=== PATIENT | male | born 1950 | race Caucasian/White ===

== ENCOUNTER 2017-09-23 22:49 | Inpatient (IN) | payer OTHER, MEDICARE ==
[~2017-09-23] VITALS: Ht 177.8 cm; Wt 90.2 kg
[2017-09-23 22:56] VITALS: BP 214/102; PULSE 61; RESP 18; TEMP 97.6; O2SAT 94
[2017-09-23] MEDS ORDERED: HYDR25TA5 PO (23:21)
[2017-09-23] MEDS ORDERED: ASPI-516 CHEW (23:21)
[2017-09-23] MEDS ORDERED: SIMV20TA PO (23:21)
[2017-09-23] MEDS ORDERED: RAMI10CA PO (23:21)
[2017-09-23] MEDS ORDERED: IPRAAER INH (23:21)
[2017-09-23 23:35] VITALS: BP 195/88; PULSE 67; RESP 18; O2SAT 95
[2017-09-23 23:58] LABS: AUTOMATED NEUTROPHIL # 9.3 TH/MM3 (1.8-7.7); BASOPHIL # 0.2 TH/MM3 (0-0.2); BASOPHIL % 1.4 % (0.0-2.0); EOSINOPHIL % 0.3 % (0.0-4.0); HEMATOCRIT 43.4 % (39.0-51.0); HEMOGLOBIN 14.5 GM/DL (13.0-17.0); LYMPHOCYTE # 0.8 TH/MM3 (1.0-4.8); MEAN CELL VOLUME 90.5 FL (80.0-100.0); MEAN CORPUSCULAR HEMOGLOBIN 30.3 PG (27.0-34.0); MEAN CORPUSCULAR HGB CONC 33.5 % (32.0-36.0); MEAN PLATELET VOLUME 5.9 FL (7.0-11.0); MONO % 6.3 % (0.0-8.0); MONOCYTE # 0.7 TH/MM3 (0-0.9); PLATELET COUNT 365 TH/MM3 (150-450); RED CELL DISTRIBUTION WIDTH 15.1 % (11.6-17.2)
[2017-09-24] VITALS (19 sets, daily range): BP systolic 139–197; BP diastolic 68–90; PULSE 65–92; RESP 16–18; TEMP 97.8–98.1; O2SAT 72–98
[2017-09-24 00:07] LABS: CALCIUM 8.5 MG/DL (8.5-10.1); CHLORIDE 86 MEQ/L (98-107)
--- NOTE | 2017-09-24 00:08 | RADRPT ---
EXAM DATE/TIME: 09/23/2017 23:49 [place] COMPARISON: No previous studies available for comparison. INDICATIONS : Shortness of breath. MEDICAL HISTORY : None. SURGICAL HISTORY : None. ENCOUNTER: Initial ACUITY: 1 day PAIN SCORE: 0/10 LOCATION: Bilateral chest FINDINGS: 2 portable frontal views the chest show a cavitary lesion involving the left upper lobe. This measure s approximately 5 cm in diameter. Chronic interstitial changes noted within the lungs. Hyperinflation observed. No effusions. Heart is normal in size. A degenerative spine. CONCLUSION: Suspected cavitary lesion involving the left upper lobe. CT of the thorax is suggested to further gabrielle gunderson. Todd Figueredo Jr., MD on September 24, 2017 at 0:06 Board Certified Radiologist. This report was verified electronically.
[2017-09-24 00:09] LABS: PROTHROMBIN TIME - PATIENT 10.5 SEC (9.8-11.6)
[2017-09-24 00:11] LABS: ALBUMIN 3.2 GM/DL (3.4-5.0); ALT (GPT) 31 U/L (12-78); AST (GOT) 66 U/L (15-37); BLOOD UREA NITROGEN 9 MG/DL (7-18); CREATININE 0.58 MG/DL (0.60-1.30); GLOMERULAR FILTRATION RATE 140 ML/MIN (>89); GLUCOSE,RANDOM 115 MG/DL (74-106); MAGNESIUM 1.2 MG/DL (1.5-2.5)
[2017-09-24 00:16] LABS: ALKALINE PHOSPHATASE 169 U/L (45-117); TOTAL BILIRUBIN ADULT 0.5 MG/DL (0.2-1.0); TOTAL PROTEIN 7.3 GM/DL (6.4-8.2); TROPONIN I 0.25 NG/ML (0.02-0.05)
[2017-09-24 00:19] LABS: SODIUM (NA) 122 MEQ/L (136-145)
[2017-09-24] MEDS ORDERED: NITROGLYCERIN 2% OINT 1 GM PACKET TOPICAL ONE (00:45)
[2017-09-24] MEDS ORDERED: ONDANSETRON HCL 4 MG/2 ML VIAL IV PUSH ONE (00:45)
[2017-09-24] MEDS ORDERED: ASPIRIN 81 MG CHEW TAB CHEW ONE (00:45)
[2017-09-24] MEDS ORDERED: SODIUM CHLOR 0.9% 1000 ML INJ 1,000 ML IV SCH (00:45)
--- NOTE | 2017-09-24 00:53 | PD ---
HPI Chief Complaint: Cold / Flu Symptoms Time Seen by Provider: 23:15 Travel History International Travel<30 days: No Contact w/Intl Traveler<30days: No Traveled to known affect area: No History of Present Illness HPI 67-year-old male presents to the emergency department by private transportation the care of his spouse for evaluation of 1 week of cough congestion and not feeling well. Patient also reports since yesterday he has had multiple episodes of vomiting. No report of dietary indiscretion well water ingestion or foreign travel. Patient denies any fever or chills. Cough has been productive of yellow-green sputum with streaks of blood. Patient denies any chest pain or referred neck jaw back shoulder arm or abdominal pain. Patient's had no near syncope or syncope or diaphoresis. Patient has had shortness of breath and reports history of COPD and 2 pack per day cigarette history. Patient is also treated for hypertension and dyslipidemia. Patient states he called his primary care provider who sent him for chest x-ray and it was identified to have some scar tissue so was sent today for CT of the chest. Patient states he had the imaging study at about 4 PM today and does not know the results of his CT of the chest. Due to persistent nausea and vomiting he decided to come to the emergency room at this time. Patient denies any recent long distance travel protracted bedrest or surgical procedure. Patient has chronic pedal and ankle edema which is not new and not changed. Patient had no recent injury or fall. Patient denies any epistaxis hematemesis coffee-ground emesis melena hematochezia hematuria or easy bruising. Patient has not taken any medications for symptom relief. Patient uses rescue inhaler as needed. Patient rates pain as 0/10 intensity. PFSH Past Medical History Narrative Medical Asthma/COPD, dyslipidemia, hypertension, tobaccoism; right nephrectomy, herniorrhaphy; occasional alcohol use nursing notes reviewed Asthma: Yes High Cholesterol: Yes COPD: Yes Diminished Hearing: No Hypertension: Yes Tetanus Vaccination: Never Vaccinated Influenza Vaccination: No ?: Not Past Surgical History Other Surgery: Yes (Right kidney removed, Bilat hernia repair) Social History Alcohol Use: Yes (2-3 drinks per day) Tobacco Use: Yes (2 pks per day) Substance Use: No Allergies-Medications (Allergen,Severity, Reaction): Coded Allergies: No Known Allergies (Unverified , 09/23/17) Reported Meds & Prescriptions Reported Meds & Active Scripts Active Reported Combivent Respimat Inh (Ipratropium-Albuterol Inh) 20-100 Fci/Act Aero 1 Puff INH QID Aspirin 81 Mg Chew 81 Mg CHEW DAILY Hydrochlorothiazide 25 Mg Tab 25 Mg PO DAILY Simvastatin 20 Mg Tab 20 Mg PO DAILY Ramipril 10 Mg Cap 10 Mg PO DAILY Review of Systems Except as stated in HPI: all other systems reviewed are Neg General / Constitutional: No: Fever, Chills, Weight Loss HENT: No: Sore Throat, Congestion Cardiovascular: Positive: Edema (chronic pedal and ankle edema), No: Chest Pain or Discomfort, Diaphoresis, Syncope Respiratory: Positive: Cough, Shortness of Breath, Wheezing, Hemoptysis ( streaks of blood with yello green sputum), No: Orthopnea, Night Sweats Gastrointestinal: Positive: Nausea, Vomiting, No: Abdominal Pain, Hematemesis, Hematochezia Genitourinary: No: Dysuria, Hematuria, Flank Pain Musculoskeletal: No: Myalgias, Arthralgias Skin: No Rash Neurologic: No: Weakness, Dizziness Psychiatric: No: Anxiety Hematologic/Lymphatic: No: Easy Bruising Physical Exam Narrative GENERAL: Well-developed well-nourished male no acute distress no respiratory distress SKIN: Warm and dry. HEAD: Normocephalic. EYES: No scleral icterus. No injection or drainage. NECK: Supple, trachea midline. No JVD or lymphadenopathy. CARDIOVASCULAR: Regular rate and rhythm without murmurs, gallops, or rubs. Radial and dorsalis pedis pulses 2+ to palpation bilaterally. RESPIRATORY: Breath sounds equal bilaterally. No accessory muscle use. GASTROINTESTINAL: Abdomen soft, non-tender, nondistended. MUSCULOSKELETAL: No cyanosis, or edema. BACK: Nontender without obvious deformity. No CVA tenderness. Data Data Last Documented VS Vital Signs Date Time Temp Pulse Resp B/P (MAP) Pulse Ox O2 Delivery O2 Flow Rate FiO2 09/24/17 01:00 66 18 197/88 (124) 95 Nasal Cannula 2.00 09/23/17 22:56 97.6 Orders Orders Complete Blood Count With Diff (09/23/17 23:15) Comprehensive Metabolic Panel (09/23/17 23:15) B-Type Natriuretic Peptide (09/23/17 23:15) Act Partial Throm Time (Ptt) (09/23/17 23:15) Prothrombin Time / Inr (Pt) (09/23/17 23:15) Magnesium (Mg) (09/23/17 23:15) Ckmb (Isoenzyme) Profile (09/23/17 23:15) Troponin I (09/23/17 23:15) Blood Culture (09/23/17 23:15) Iv Access Insert/Monitor (09/23/17 23:15) Electrocardiogram (09/23/17 23:15) Ecg Monitoring (09/23/17 23:15) Oximetry (09/23/17 23:15) Chest, Single Ap (09/23/17 23:15) Lactic Acid (09/23/17 23:15) Alcohol (Ethanol) (09/23/17 23:15) CKMB (09/23/17 23:35) CKMB% (09/23/17 23:35) Ondansetron Inj (Zofran Inj) (09/24/17 00:45) Nitroglycerin 2% Oint (Nitroglycerin 2% (09/24/17 00:45) Sodium Chlor 0.9% 1000 Ml Inj (Ns 1000 M (09/24/17 00:45) Aspirin Chew (Aspirin Chew) (09/24/17 00:45) Budeson-Formot 160-4.5 Mcg Inh (Symbicor (09/24/17 09:00) S[employer] Culture And Stain (09/24/17 00:49) Consult Infectious Disease (09/24/17 ) Consult Cardiology (09/24/17 ) Urinalysis - C+S If Indicated (09/24/17 00:49) Drug Screen, Random Urine (09/24/17 00:49) Admit To Inpatient (09/24/17 ) Vital Signs (Adult) Q4H (09/24/17 00:49) Activity Oob With Assistance (09/24/17 00:49) Economic Development Specialist / Telemetry .CONTINUOUS (09/24/17 00:49) Intake + Output CARLOS.QSHIFT (09/24/17 00:49) Diet Heart Healthy (09/24/17 Breakfast) Sodium Chlor 0.9% 1000 Ml Inj (Ns 1000 M (09/24/17 00:49) Sodium Chloride 0.9% Flush (Ns Flush) (09/24/17 01:00) Sodium Chloride 0.9% Flush (Ns Flush) (09/24/17 09:00) Ondansetron Inj (Zofran Inj) (09/24/17 01:00) Comprehensive Metabolic Panel (09/25/17 06:00) Complete Blood Count With Diff (09/25/17 06:00) Troponin I (09/24/17 06:00) Troponin I (09/24/17 12:00) Case Management Consult (09/24/17 00:49) Acetaminophen (Tylenol) (09/24/17 01:00) Acetamin-Hydrocod 325-5 Mg (Partridge 5-325 (09/24/17 01:00) Morphine Inj (Morphine Inj) (09/24/17 01:00) Docusate Sodium-Senna (Trina-Colace) (09/24/17 09:00) Magnesium Hydroxide Liq (Milk Of Magnesi (09/24/17 01:00) Sennosides (Senokot) (09/24/17 01:00) Bisacodyl Supp (Dulcolax Supp) (09/24/17 01:00) Lactulose Liq (Lactulose Liq) (09/24/17 01:00) Inpatient Certification (09/24/17 ) Aspirin Chew (Aspirin Chew) (09/24/17 09:00) Pravastatin (Pravachol) (09/24/17 09:00) Vital Signs (Adult) Q4H (09/24/17 00:55) Bedside Glucose CARLOS.CSUGAR (09/24/17 00:55) Intake + Output CARLOS.QSHIFT (09/24/17 00:55) Alcohol Withdrawal Asmt-Ciwa Q4HX18 (09/24/17 00:55) ^ Seizure Precautions (09/24/17 00:55) Folic Acid (Folate) (09/24/17 09:00) Thiamine (Vit B1) (Vitamin B1) (09/24/17 09:00) Multivitamins-Minerals Therap (Theragran (09/24/17 09:00) Consult Cm-Etoh Abuse Dc Plan (09/24/17 ) Flumazenil Inj (Romazicon Inj) (09/24/17 01:00) Lorazepam (Ativan) (09/24/17 01:00) Lorazepam Inj (Ativan Inj) (09/24/17 01:00) Lorazepam (Ativan) (09/24/17 01:00) Lorazepam Inj (Ativan Inj) (09/24/17 01:00) Lorazepam Inj (Ativan Inj) (09/24/17 01:00) Lorazepam Inj (Ativan Inj) (09/24/17 01:00) Haloperidol Inj (Haldol Inj) (09/24/17 01:00) Heparin Inj (Heparin Inj) (09/24/17 01:00) Heparin-D5w 25,000 U/250 Ml (Heparin-D5w (09/24/17 01:00) Cbc No Diff, Includes Plts (09/27/17 06:00) Act Partial Throm Time (Ptt) (09/24/17 07:55) Occult Blood (Hemoccult) Stool (09/24/17 00:55) Admit Order (Ed Use Only) (09/24/17 ) Activity Bed Rest (09/24/17 00:57) Notify Dr: Other (09/24/17 00:57) Labs Laboratory Tests Test 09/23/17 23:35 White Blood Count 11.0 TH/MM3 Red Blood Count 4.80 MIL/MM3 Hemoglobin 14.5 GM/DL Hematocrit 43.4 % Mean Corpuscular Volume 90.5 FL Mean Corpuscular Hemoglobin 30.3 PG Mean Corpuscular Hemoglobin Concent 33.5 % Red Cell Distribution Width 15.1 % Platelet Count 365 TH/MM3 Mean Platelet Volume 5.9 FL Neutrophils (%) (Auto) 85.0 % Lymphocytes (%) (Auto) 7.0 % Monocytes (%) (Auto) 6.3 % Eosinophils (%) (Auto) 0.3 % Basophils (%) (Auto) 1.4 % Neutrophils # (Auto) 9.3 TH/MM3 Lymphocytes # (Auto) 0.8 TH/MM3 Monocytes # (Auto) 0.7 TH/MM3 Eosinophils # (Auto) 0.0 TH/MM3 Basophils # (Auto) 0.2 TH/MM3 CBC Comment DIFF FINAL Differential Comment Prothrombin Time 10.5 SEC Prothromb Time International Ratio 1.0 RATIO Activated Partial Thromboplast Time 30.0 SEC Blood Urea Nitrogen 9 MG/DL Creatinine 0.58 MG/DL Random Glucose 115 MG/DL Total Protein 7.3 GM/DL Albumin 3.2 GM/DL Calcium Level 8.5 MG/DL Magnesium Level 1.2 MG/DL Alkaline Phosphatase 169 U/L Aspartate Amino Transf (AST/SGOT) 66 U/L Alanine Aminotransferase (ALT/SGPT) 31 U/L Total Bilirubin 0.5 MG/DL Sodium Level 122 MEQ/L Potassium Level 4.0 MEQ/L Chloride Level 86 MEQ/L Carbon Dioxide Level 24.0 MEQ/L Anion Gap 12 MEQ/L Estimat Glomerular Filtration Rate 140 ML/MIN Lactic Acid Level 1.6 mmol/L Total Creatine Kinase 647 U/L Creatine Kinase MB 21.0 NG/ML Creatine Kinase MB % 3.2 % Troponin I 0.25 NG/ML B-Type Natriuretic Peptide 80 PG/ML Ethyl Alcohol Level 8 MG/DL [facility] Medical Decision Making Medical Screen Exam Complete: Yes Emergency Medical Condition: Yes Medical Record Reviewed: Yes Interpretation(s) EKG normal sinus rhythm rate 65 QS inferiorly age-indeterminate no acute ST elevation or injury pattern or ectopy noted biphasic T-wave anteriorly in V4, V5 Differential Diagnosis Cough, bronchitis, pneumonia Narrative Course IV access obtained patient placed on patient monitor with continuous pulse oximetry; specimens collected and sent for resulting; patient administered Zofran 4 mg IV Patient administered maintenance IV fluids normal saline at 100 cc an hour for hyponatremia Chest x-ray shows concern for cavitary lesion left upper lobe; call placed to [place] and imaging study discussed with on-call radiologist who has read report from [place] imaging findings consistent with left upper lobe atypical lesion versus scarring concerning for atypical infection such as TB or fungal infection versus malignancy recommend follow-up CT. EKG sinus rhythm QS inferiorly age-indeterminate however troponin I has resulted as 0.25 and CK total is 647 with elevated CK-MB however MB percent is 3.2%. Patient denies any chest pain in the last week and none in the last 24 hours and no chest pain or referred pain at this time. Patient does continue to complain of nausea. administered Zofran with good response. also administered aspirin, nitroglycerin, and heparin. Patient's case discussed with on-call medicine for admission requests patient be admitted to [facility] at [facility]. Patient will be on negative pressure airborne isolation. Patient placed on Zosyn and for atypical coverage azithromycin IV antibiotics. cardiac risks: male, age 67y, tobacco use 2ppd, htn, and dyslipidemia Patient and family informed of imaging results and admission plan and agreeable. Critical Care Narrative Aggregate critical care time was 35 minutes. Time to perform other separately billable procedures was not included in the critical care time. My time did not include minutes spent treating any other patients simultaneously or on activities that did not directly contribute to the patient's treatment. The services I provided to this patient were to treat and/or prevent clinically significant deterioration that could result in: Myocardial infarction, sepsis, respiratory failure, I provided critical care services requiring my management, as noted below: Chart data review, documentation time, medication orders and management, vital sign assessments/reviewing monitor data, ordering and reviewing lab tests, ordering and interpreting/reviewing x-rays and diagnostic studies, care of the patient and discussion of the patient with the admitting physicians. Physician Communication Physician Communication discussed with Dr Petty for admission-- to [facility] to [facility] and for poss atypical cavitary pneumonia Diagnosis Primary Impression: ACS (acute coronary syndrome) Additional Impressions: Cavitary lesion of lung Hyponatremia COPD (chronic obstructive pulmonary disease) Admitting Information Admitting Physician Requests: Admit Angy Laughlin MD Sep 24, 2017 00:53
[2017-09-24] MEDS ORDERED: HEPARIN SODIUM - IV 10,000 UNITS/10 ML VIAL IV PUSH ONE (01:00)
[2017-09-24] MEDS ORDERED: HALOPERIDOL LACTATE 5 MG/ML AMP IM PRN (01:00)
[2017-09-24] MEDS ORDERED: ACETAMINOPHEN 325 MG TAB PO PRN (01:00)
[2017-09-24] MEDS ORDERED: LORazepam 2 MG TAB PO PRN (01:00)
[2017-09-24] MEDS ORDERED: LACTULOSE SYRUP 20 GM/30 ML CUP PO PRN (01:00)
[2017-09-24] MEDS ORDERED: ONDANSETRON HCL 4 MG/2 ML VIAL IVP PRN (01:00)
[2017-09-24] MEDS ORDERED: FLUMAZENIL 0.5 MG/5 ML VIAL IV PUSH PRN (01:00)
[2017-09-24] MEDS ORDERED: LORazepam 2 MG/ML VIAL IV PUSH PRN ×4 (01:00)
[2017-09-24] MEDS ORDERED: SENNOSIDES 8.6 MG TAB PO PRN (01:00)
[2017-09-24] MEDS ORDERED: MAGNESIUM HYDROXIDE SUSP 30 ML CUP PO PRN (01:00)
[2017-09-24] MEDS ORDERED: BISACODYL 10 MG SUPP RECTAL PRN (01:00)
[2017-09-24] MEDS ORDERED: MORPHINE SULFATE 2 MG/ML SYRINGE IV PUSH PRN (01:00)
[2017-09-24] MEDS ORDERED: ACETAMINOPHEN/HYDROcodone 325 MG/5 MG TAB PO PRN (01:00)
[2017-09-24] MEDS ORDERED: SODIUM CHLORIDE 0.9% FLUSH 10 ML FLUSH IV FLUSH PRN (01:00)
[2017-09-24] MEDS: SODIUM CHLOR 0.9% 1000 ML INJ 1,000 ML IV SCH ×3 (01:14→14:01)
[2017-09-24] MEDS ORDERED: RESP: ALBUTEROL 2.5 MG/IPRATROPIUM 0.5 MG NEB (SCH) NEB ONE (01:30)
[2017-09-24] MEDS ORDERED: PIPERACIL-TAZO 4.5 GM PREMIX 100 ML IV ONE (01:30)
[2017-09-24] MEDS ORDERED: AZITHROMYCIN INJ 500 MG in SODIUM CHLOR 0.9% 250 ML INJ 250 ML IV ONE (01:30)
[2017-09-24] MEDS: HEPARIN-D5W 25,000 U/250 ML 250 ML IV PRN ×2 (02:28→23:24)
[2017-09-24 04:14] LABS: BLOOD, URINE SMALL (NEG); GLUCOSE,URINE NEG (NEG); KETONE, URINE 40 mg/dL (NEG); NITRITE,URINE NEG (NEG); URINE COLOR YELLOW (YELLW/STRAW); URINE LEUKOCYTE ESTERASE NEG (NEG)
[2017-09-24 04:19] LABS: BILIRUBIN, URINE NEG (NEG)
[2017-09-24 04:20] LABS: SQUAMOUS EPITHELIAL CELL URINE 0-5 /hpf (0-5); WBC, URINE 0-2 /hpf (0-5)
[2017-09-24] MEDS ORDERED: PROCHLORPERAZINE MALEATE 5 MG TAB PO PRN (07:45)
[2017-09-24] MEDS: SODIUM CHLORIDE 0.9% FLUSH 10 ML FLUSH IV FLUSH SCH ×2 (09:00→22:04)
[2017-09-24] MEDS ORDERED: PRAVASTATIN SOD 40 MG TAB PO SCH (09:00)
[2017-09-24] MEDS: DOCUSATE SODIUM 50 MG/SENNA 8.6 MG TAB PO SCH ×2 (09:32→21:50)
[2017-09-24] MEDS: THIAMINE HCL 100 MG TAB PO SCH (09:32)
[2017-09-24] MEDS: ASPIRIN 81 MG CHEW TAB CHEW SCH (09:33)
[2017-09-24] MEDS: FOLIC ACID 1 MG TAB PO SCH (09:33)
[2017-09-24] MEDS: MULTIVITAMINS/MINERALS THERAPEUTIC TAB PO SCH (09:52)
[2017-09-24] MEDS: BUDESONIDE-FORMOTEROL 160/4.5 MCG INHALER INH SCH ×2 (09:52→21:51)
[2017-09-24 12:53] LABS: CALCIUM 8.4 MG/DL (8.5-10.1)
[2017-09-24 12:54] LABS: BICARBONATE 28.6 MEQ/L (21.0-32.0)
[2017-09-24 12:58] LABS: CREATININE 0.63 MG/DL (0.60-1.30)
[2017-09-24] MEDS ORDERED: RESP: ALBUTEROL 2.5 MG/IPRATROPIUM 0.5 MG NEB (PRN) NEB (13:15)
--- NOTE | 2017-09-24 13:26 | HHI.HP ---
[facility] Primary Care Physician Ayush Cleveland M.D. Admission Diagnosis acs; cavitary lung lesion; hyponatremia Diagnoses: Chief Complaint: Shortness of breath Travel History International Travel<30 Days: No Contact w/Intl Traveler <30 Da: No Traveled to Known Affected Are: No History of Present Illness This patient is a 67-year-old gentleman who has a history of hypertension and COPD. Patient does come to the hospital with about a week of increased cough, shortness of breath and generalized malaise. 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 This was followed by bronchitis symptoms which she has had before similar to COPD exacerbations. He had some green and bloody sputum with associated nausea and vomiting. This got worse over the last 2 days. In the meantime he saw his primary care provider who ordered an outpatient chest x-ray and a CT scan. CT scan was done yesterday and the patient began getting worse and came to the emergency room prior to the results. The results of the outpatient CT per ER attending show cavitary lesion concerning for tuberculosis. Patient is a former [place] man and has been out of the country. This was quite some years ago however. 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 He has not had any coleman fevers or chills. Patient has had progressive nausea and vomiting however he does have multiple cardiac risk factors including family history as well as a tobacco history and a personal history of hypertension and dyslipidemia. His cardiac enzymes were abnormal. The patient does prevent with acute coronary syndrome/non-ST elevation ND as his EKG does not show any segment changes consistent with ischemic events. His blood pressure also was quite elevated on arrival 200s over 100. Patient's been admitted to the hospital for further evaluation and treatment Review of Systems Constitutional: DENIES: Diaphoretic episodes, Fatigue, Fever, Weight gain, Weight loss, Chills, Dizziness, Change in appetite, Night Sweats Endocrine: DENIES: Heat/cold intolerance, Polydipsia, Polyuria, Polyphagia Eyes: DENIES: Blurred vision, Diplopia, Eye inflammation, Eye pain, Vision loss , Photosensitivity, Double Vision Respiratory: COMPLAINS OF: Cough, Sputum production, Shortness of breath, DENIES: Apneas, Snoring, Wheezing, Hemoptysis Cardiovascular: COMPLAINS OF: Chest pain, Dyspnea on Exertion Gastrointestinal: COMPLAINS OF: Nausea, Vomiting, DENIES: Abdominal pain, Black stools, Bloody stools, Constipation, Diarrhea, Difficulty Swallowing, Anorexia Genitourinary: DENIES: Sexual dysfunction, Urinary frequency, Urinary incontinence, Urgency, Hematuria, Dysuria, Nocturia, Penile Discharge, Testicular Pain, Testicular Swelling Musculoskeletal: DENIES: Joint pain, Muscle aches, Stiffness, Joint Swelling, Back pain, Neck pain Integumentary: DENIES: Abnormal pigmentation, Nail changes, Pruritus, Rash Hematologic/lymphatic: DENIES: Bruising, Lymphadenopathy Immunologic/allergic: DENIES: Eczema, Urticaria Neurologic: DENIES: Abnormal gait, Headache, Localized weakness, Paresthesias, Seizures, Speech Problems, Tremor, Poor Balance Psychiatric: DENIES: Anxiety, Confusion, Mood changes, Depression, Hallucinations, Agitation, Suicidal Ideation, Homicidal Ideation, Delusions Except as stated in HPI: all other systems reviewed are Neg Past Family Social History Past Medical History COPD Hyperlipidemia Hypertension Past Surgical History 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 Bilateral inguinal hernia repair Reported Medications Reviewed in the EMR patient takes baby aspirin daily Allergies: Coded Allergies: No Known Allergies (Unverified , 09/23/17) Active Ordered Medications Reviewed in the EMR Family History Father was stabbed at a young age, mother of heart failure in her 60s Social History Patient smokes 2 packs a day, he drinks alcohol (bourbon) daily Physical Exam Vital Signs Vital Signs Date Time Temp Pulse Resp B/P (MAP) Pulse Ox O2 Delivery O2 Flow Rate FiO2 09/24/17 13:09 77 16 162/72 (102) 98 Nasal Cannula 2.00 09/24/17 12:12 68 16 139/73 (95) 98 Nasal Cannula 2.00 09/24/17 10:50 82 16 179/86 (117) 94 Nasal Cannula 2.00 09/24/17 07:02 92 16 193/89 (123) 94 Nasal Cannula 2.00 09/24/17 06:08 88 18 171/84 (113) 95 Nasal Cannula 2.00 09/24/17 03:37 72 18 97 Nasal Cannula 2.00 09/24/17 03:00 77 18 180/82 (114) 95 Nasal Cannula 2.00 09/24/17 02:00 68 18 186/90 (122) 95 Nasal Cannula 2.00 09/24/17 01:46 95 Nasal Cannula 2.00 09/24/17 01:00 66 18 197/88 (124) 95 Nasal Cannula 2.00 09/23/17 23:35 67 18 195/88 (123) 95 Nasal Cannula 2.00 09/23/17 23:06 18 95 Nasal Cannula 2.00 09/23/17 22:56 97.6 61 18 214/102 (139) 94 Physical Exam GENERAL: This is a well-nourished, well-developed patient, planning of nausea SKIN: No rashes, ecchymoses or lesions. Cool and dry. HEAD: Atraumatic. Normocephalic. No temporal or scalp tenderness. EYES: Pupils equal round and reactive. Extraocular motions intact. No scleral icterus. No injection or drainage. ENT: Nose without bleeding, purulent drainage or septal hematoma. Throat without erythema, tonsillar hypertrophy or exudate. Uvula midline. Airway patent. NECK: Trachea midline. No JVD or lymphadenopathy. Supple, nontender, no meningeal signs. CARDIOVASCULAR: Regular rate and rhythm without murmurs, gallops, or rubs. RESPIRATORY: Decreased breath sounds bilaterally with crackles and distant breath sounds on the left GASTROINTESTINAL: Abdomen soft, non-tender, nondistended. No hepato-splenomegaly , or palpable masses. No guarding. MUSCULOSKELETAL: Extremities without clubbing, cyanosis, or edema. No joint tenderness, effusion, or edema noted. No calf tenderness. Negative Homans sign bilaterally. NEUROLOGICAL: Awake and alert. Cranial nerves II through XII intact. Motor and sensory grossly within normal limits. Five out of 5 muscle strength in all muscle groups. Normal speech. Laboratory Laboratory Tests Test 09/23/17 23:35 09/24/17 04:00 09/24/17 05:57 09/24/17 08:20 White Blood Count 11.0 Red Blood Count 4.80 Hemoglobin 14.5 Hematocrit 43.4 Mean Corpuscular Volume 90.5 Mean Corpuscular Hemoglobin 30.3 Mean Corpuscular Hemoglobin Concent 33.5 Red Cell Distribution Width 15.1 Platelet Count 365 Mean Platelet Volume 5.9 Neutrophils (%) (Auto) 85.0 Lymphocytes (%) (Auto) 7.0 Monocytes (%) (Auto) 6.3 Eosinophils (%) (Auto) 0.3 Basophils (%) (Auto) 1.4 Neutrophils # (Auto) 9.3 Lymphocytes # (Auto) 0.8 Monocytes # (Auto) 0.7 Eosinophils # (Auto) 0.0 Basophils # (Auto) 0.2 CBC Comment DIFF FINAL Differential Comment Prothrombin Time 10.5 Prothromb Time International Ratio 1.0 Activated Partial Thromboplast Time 30.0 35.2 Blood Urea Nitrogen 9 Creatinine 0.58 Random Glucose 115 Total Protein 7.3 Albumin 3.2 Calcium Level 8.5 Magnesium Level 1.2 Alkaline Phosphatase 169 Aspartate Amino Transf (AST/SGOT) 66 Alanine Aminotransferase (ALT/SGPT) 31 Total Bilirubin 0.5 Sodium Level 122 Potassium Level 4.0 Chloride Level 86 Carbon Dioxide Level 24.0 Anion Gap 12 Estimat Glomerular Filtration Rate 140 Lactic Acid Level 1.6 Total Creatine Kinase 647 Creatine Kinase MB 21.0 Creatine Kinase MB % 3.2 Troponin I 0.25 0.20 B-Type Natriuretic Peptide 80 Ethyl Alcohol Level 8 Urine Color YELLOW Urine Turbidity CLEAR Urine pH 6.0 Urine Specific [place] GREATER/EQUAL 1.030 Urine Protein 100 Urine Glucose (UA) NEG Urine Ketones 40 Urine Occult Blood SMALL Urine Nitrite NEG Urine Bilirubin NEG Urine Urobilinogen 1.0 Urine Leukocyte Esterase NEG Urine RBC 4-9 Urine WBC 0-2 Urine Squamous Epithelial Cells 0-5 Urine Bacteria NONE Microscopic Urinalysis Comment CULT NOT INDICATED Urine Opiates Screen NEG Urine Barbiturates Screen NEG Urine Amphetamines Screen NEG Urine Benzodiazepines Screen NEG Urine Cocaine Screen NEG Urine Cannabinoids Screen NEG Test 09/24/17 12:30 Blood Urea Nitrogen 10 Creatinine 0.63 Random Glucose 101 Calcium Level 8.4 Sodium Level 127 Potassium Level 4.1 Chloride Level 91 Carbon Dioxide Level 28.6 Anion Gap 7 Estimat Glomerular Filtration Rate 127 Troponin I 0.21 Date/Time Source Procedure Growth Status 09/23/17 23:40 Blood Peripheral Aerobic Blood Culture - Preliminary NO GROWTH IN 1 DAY Resulted 09/23/17 23:40 Blood Peripheral Anaerobic Blood Culture - Preliminary NO GROWTH IN 1 DAY Resulted 09/24/17 06:04 Sputum Expectorated Sputum Acid Fast Stain Pending Received 09/24/17 06:04 Sputum Expectorated Sputum Mycobacterial Culture Pending Received Result Diagram: 09/23/17 2335 09/24/[address] [place] imaging findings consistent with left upper lobe atypical lesion versus scarring concerning for atypical infection such as TB or fungal infection versus malignancy recommend follow-up CT. Septic Shock Reassessment Septic shock perfusion: reassessment completed Caprini VTE Risk Assessment Caprini VTE Risk Assessment: Mod/High Risk (score >= 2) Caprini Risk Assessment Model Point Value = 1 Point Value = 2 Point Value = 3 Point Value = 5 Age 41-60 Minor surgery BMI > 25 kg/m2 Swollen legs Varicose veins or History of unexplained or recurrent spontaneous Oral contraceptives or hormone replacement Sepsis (< 1 month) Serious lung disease, including pneumonia (< 1 month) Abnormal pulmonary function Acute myocardial infarction Congestive heart failure (< 1 month) History of inflammatory bowel disease Medical patient at bed rest Age 61-74 Arthroscopic surgery Major open surgery (> 45 min) Laparoscopic surgery (> 45 min) Malignancy Confined to bed (> 72 hours) Immobilizing plaster cast Central venous access Age >= 75 History of VTE Family history of VTE Factor V Leiden Prothrombin [id number] Lupus anticoagulant Anticardiolipin antibodies Elevated serum homocysteine Heparin-induced thrombocytopenia Other congenital or acquired thrombophilia Stroke (< 1 month) Elective arthroplasty Hip, pelvis, or leg fracture Acute spinal cord injury (< 1 month) Prophylaxis Regimen Total Risk Factor Score Risk Level Prophylaxis Regimen 0-1 Low Early ambulation 2 Moderate Order ONE of the following: *Sequential Compression Device (SCD) *Heparin 5000 units SQ BID 3-4 Higher Order ONE of the following medications: *Heparin 5000 units SQ TID *Enoxaparin/Lovenox 40 mg SQ daily (WT < 150 kg, CrCl > 30 mL/min) *Enoxaparin/Lovenox 30 mg SQ daily (WT < 150 kg, CrCl > 10-29 mL/min) *Enoxaparin/Lovenox 30 mg SQ BID (WT < 150 kg, CrCl > 30 mL/min) AND/OR *Sequential Compression Device (SCD) 5 or more Highest Order ONE of the following medications: *Heparin 5000 units SQ TID (Preferred with Epidurals) *Enoxaparin/Lovenox 40 mg SQ daily (WT < 150 kg, CrCl > 30 mL/min) *Enoxaparin/Lovenox 30 mg SQ daily (WT < 150 kg, CrCl > 10-29 mL/min) *Enoxaparin/Lovenox 30 mg SQ BID (WT < 150 kg, CrCl > 30 mL/min) AND *Sequential Compression Device (SCD) Assessment and Plan Problem List: (1) Cavitary lesion of lung ICD Code: J98.4 - Other disorders of lung Status: Acute Plan: Broad-spectrum antibiotics, cefepime and azithromycin Follow-up for TB (2) ACS (acute coronary syndrome) ICD Code: I24.9 - Acute ischemic heart disease, unspecified Status: Acute Plan: Patient recently had quite a bit of exertion and felt that his chest pain started after that. Cardiac enzymes appear to be trending down. Will follow with cardiology of systems Continue with morphine as needed, nitro, aspirin, beta-jennie Patient on heparin drip (3) Hyponatremia ICD Code: E87.1 - Hypo-osmolality and hyponatremia Status: Acute Plan: Improved with IV hydration (4) COPD (chronic obstructive pulmonary disease) ICD Code: J44.9 - Chronic obstructive pulmonary disease, unspecified Status: Acute (5) Hypertensive urgency ICD Code: I16.0 - Hypertensive urgency Plan: With evidence of acute cardiac injury Continue with IV blood pressure medications, continue with date of jennie, aspirin and follow-up clinically Physician Certification 2 Midnight Certification Type: Admission for Inpatient Services Order for Inpatient Services The services are ordered in accordance with Medicare regulations or non- Medicare payer requirements, as applicable. In the case of services not specified as inpatient-only, they are appropriately provided as inpatient services in accordance with the 2-midnight benchmark. Estimated LOS (days): 5 5 days is the estimated time the patient will need to remain in the hospital, assuming treatment plan goals are met and no additional complications. Post-Hospital Plan: Cori Strickland MD Sep 24, 2017 13:26
[2017-09-24] MEDS: CEFEPIME INJ 1,000 MG in SODIUM CHLORIDE 0.9% INJ 100 ML IV SCH ×2 (14:02→22:03)
[2017-09-24] MEDS: RESP: ALBUTEROL 2.5 MG/IPRATROPIUM 0.5 MG NEB (SCH) NEB ×2 (14:27→20:50)
--- NOTE | 2017-09-24 16:41 | EKG ---
Date Performed: 09/23/2017 Time Performed: 23:33:49 PTAGE: 67 years EKG: Sinus rhythm WITH SINUS ARRHYTHMIA POSSIBLE INFERIOR MYOCARDIAL INFARCTION BORDERLINE ECG NO PREVIOUS TRACING DOCTOR: Yunior oLwery Interpretating Date/Time 09/24/2017 16:44:09
[2017-09-24] MEDS: ATORVASTATIN 20 MG TAB PO SCH (21:50)
[2017-09-24] MEDS: METOPROLOL TARTRATE 25 MG TAB PO SCH (21:50)
[2017-09-24] MEDS: LORazepam 1 MG TAB PO PRN (22:04)
[2017-09-25] VITALS (26 sets, daily range): BP systolic 142–160; BP diastolic 66–84; PULSE 54–100; RESP 16–18; TEMP 98–99; O2SAT 93–97
[2017-09-25] MEDS: AZITHROMYCIN INJ 500 MG in SODIUM CHLOR 0.9% 250 ML INJ 250 ML IV SCH (03:33)
[2017-09-25] MEDS: SODIUM CHLOR 0.9% 1000 ML INJ 1,000 ML IV SCH ×2 (03:35→13:56)
[2017-09-25] MEDS: CEFEPIME INJ 1,000 MG in SODIUM CHLORIDE 0.9% INJ 100 ML IV SCH ×3 (05:58→21:38)
[2017-09-25 07:20] LABS: AUTOMATED NEUTROPHIL # 4.8 TH/MM3 (1.8-7.7); BASOPHIL % 0.5 % (0.0-2.0); EOSINOPHIL # 0.1 TH/MM3 (0-0.4); EOSINOPHIL % 0.9 % (0.0-4.0); HEMATOCRIT 36.6 % (39.0-51.0); HEMOGLOBIN 12.5 GM/DL (13.0-17.0); LYMPH % 16.5 % (9.0-44.0); LYMPHOCYTE # 1.1 TH/MM3 (1.0-4.8); MEAN CELL VOLUME 91.2 FL (80.0-100.0); MEAN CORPUSCULAR HEMOGLOBIN 31.2 PG (27.0-34.0); MEAN CORPUSCULAR HGB CONC 34.3 % (32.0-36.0); MEAN PLATELET VOLUME 6.5 FL (7.0-11.0); MONO % 10.1 % (0.0-8.0); MONOCYTE # 0.7 TH/MM3 (0-0.9); PLATELET COUNT 265 TH/MM3 (150-450); RED BLOOD COUNT 4.01 MIL/MM3 (4.50-5.90); RED CELL DISTRIBUTION WIDTH 15.5 % (11.6-17.2); WHITE BLOOD COUNT 6.7 TH/MM3 (4.0-11.0)
[2017-09-25 07:52] LABS: ALBUMIN 2.6 GM/DL (3.4-5.0); AST (GOT) 45 U/L (15-37); BICARBONATE 29.5 MEQ/L (21.0-32.0); BLOOD UREA NITROGEN 9 MG/DL (7-18); CALCIUM 8.2 MG/DL (8.5-10.1); CHLORIDE 99 MEQ/L (98-107); CREATININE 0.69 MG/DL (0.60-1.30); GLOMERULAR FILTRATION RATE 115 ML/MIN (>89); GLUCOSE,RANDOM 87 MG/DL (74-106); SODIUM (NA) 136 MEQ/L (136-145)
[2017-09-25 07:56] LABS: ALKALINE PHOSPHATASE 118 U/L (45-117); ALT (GPT) 26 U/L (12-78); TOTAL BILIRUBIN ADULT 0.6 MG/DL (0.2-1.0); TOTAL PROTEIN 5.9 GM/DL (6.4-8.2)
[2017-09-25] MEDS: RESP: ALBUTEROL 2.5 MG/IPRATROPIUM 0.5 MG NEB (SCH) NEB ×3 (08:47→20:14)
[2017-09-25] MEDS: SODIUM CHLORIDE 0.9% FLUSH 10 ML FLUSH IV FLUSH SCH ×2 (09:00→21:41)
[2017-09-25] MEDS: ASPIRIN 81 MG CHEW TAB CHEW SCH (10:17)
[2017-09-25] MEDS: DOCUSATE SODIUM 50 MG/SENNA 8.6 MG TAB PO SCH ×2 (10:17→21:00)
[2017-09-25] MEDS: FOLIC ACID 1 MG TAB PO SCH (10:17)
[2017-09-25] MEDS: MULTIVITAMINS/MINERALS THERAPEUTIC TAB PO SCH (10:17)
[2017-09-25] MEDS: THIAMINE HCL 100 MG TAB PO SCH (10:17)
[2017-09-25] MEDS: METOPROLOL TARTRATE 25 MG TAB PO SCH ×2 (10:18→21:41)
[2017-09-25] MEDS: BUDESONIDE-FORMOTEROL 160/4.5 MCG INHALER INH SCH ×2 (10:18→21:41)
[2017-09-25] MEDS: amLODIPine BESYLATE 5 MG TAB PO SCH (12:10)
--- NOTE | 2017-09-25 12:56 | MB ---
cc: Jonathan Pandey MD DATE: 09/25/2017 REASON FOR CONSULTATION: Chest pain. HISTORY OF PRESENT ILLNESS: Mr. 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 The patient that day for the past 40 years, worked on Tuesday. Yesterday began with chest discomfort and decided to come to the emergency room. Troponin was increased, currently 0.21. The patient was admitted. Chest CT scan as well as x-ray was performed and showed some possible cavitation, TB suspected. The patient was put on isolation. I was consulted for the chest pain management. The chart was reviewed. The patient was evaluated. ALLERGIES: NONE. SOCIAL HISTORY: As mentioned before. Drinks bourbon daily. Smokes a pack of cigarettes a day. FAMILY HISTORY: Noncontributory to his current medical condition. MEDICATIONS: He is on Zithromax, he is on cefepime IV, he is on heparin IV also. He is on [place], albuterol inhaler, aspirin 81 mg a day, Lipitor 20 mg a day, Haldol p.r.n., lorazepam, metoprolol 12.5 mg twice a day, multivitamin, thiamine. REVIEW OF SYSTEMS: Currently, the patient refers no chest pain, no chest discomfort, no vomiting, no fever. PHYSICAL EXAMINATION: GENERAL: Alert, fully oriented. VITAL SIGNS: Blood pressure 152/72, pulse 58, respiratory rate 18. LUNGS: Ventilated. CARDIOVASCULAR: S1, S2. Regular. No gallop. ABDOMEN: Obese. No mass or bruit. EXTREMITIES: No edema. ELECTROCARDIOGRAM: Sinus rhythm, abnormal ST and T-wave changes. LABORATORY DATA: Potassium 3.9, creatinine 0.69. Last troponin was 0.21, ALT is 26. INR 1.0. ASSESSMENT AND RECOMMENDATIONS: Mr. Hutchinson currently is stable. He has some coughing. The gentleman is a chronic smoker. He had 2 years ago, apparently, a chest x-ray was done at [facility]. There was some possible cavitation. A CT scan was performed and was ruled out like eschar. This gentleman is less likely to have TB. I did talk to Dr. Willard. The rapid TB test is requested. For now, we will continue current management. He may have pneumonia. Also, underlying malignancy should be ruled out. His troponin is 0.21. There is no acute ST and T-wave changes. At this point, the gentleman is going to need a nuclear stress study. The study will be ordered when TB is ruled out. The case was extensively discussed with him. Blood pressure is high, it will be controlled. I will monitor him during hospitalization. Jonathan Pandey MD HS/TL/rr , 11:35 AM , 12:14 PM
--- NOTE | 2017-09-25 17:40 | HHI.PR ---
Subjective Remarks Patient states he presented to the hospital for nausea and vomiting. He does have a cough which he was being treated for as an outpatient. On admission he showed some cardiac concerns and an incidental finding of a cavitary lesion was found on chest x-ray. He also had hyponatremia. Today he states his nausea and vomiting is improved Objective Vitals Vital Signs Date Time Temp Pulse Resp B/P (MAP) Pulse Ox O2 Delivery O2 Flow Rate FiO2 09/25/17 17:14 64 09/25/17 16:40 68 09/25/17 15:01 65 09/25/17 15:01 98.0 61 18 142/76 (98) 97 09/25/17 14:24 74 09/25/17 13:11 59 09/25/17 11:00 73 09/25/17 11:00 98.7 58 18 160/84 (109) 95 09/25/17 10:35 62 09/25/17 09:00 67 09/25/17 08:48 97 Nasal Cannula 3.00 09/25/17 08:00 98.6 58 18 153/72 (99) 94 09/25/17 08:00 100 09/25/17 06:00 54 09/25/17 05:00 58 09/25/17 04:00 58 09/25/17 03:42 60 18 144/71 (95) 93 09/25/17 03:00 61 09/25/17 02:00 54 09/25/17 01:00 56 09/25/17 00:00 60 09/24/17 23:36 66 18 147/77 (100) 94 09/24/17 23:00 65 09/24/17 22:00 70 09/24/17 21:00 76 09/24/17 20:52 Nasal Cannula 3.00 09/24/17 20:00 80 09/24/17 19:40 97.8 79 16 171/86 (114) 95 09/24/17 19:40 83 09/24/17 18:12 79 09/24/17 18:12 98.1 72 18 169/88 (115) 72 I/O 09/24/17 09/24/17 09/24/17 09/25/17 09/25/17 09/25/17 07:00 15:00 23:00 07:00 15:00 23:00 Intake Total 100 ml 350 ml 200 ml 490 ml 168.9 ml Output Total 500 ml Balance 100 ml 350 ml 200 ml -10 ml 168.9 ml Intake Oral 100 ml 240 ml IV Total 100 ml 350 ml 100 ml 250 ml 168.9 ml Output Urine Total 500 ml # Bowel Movements 0 Result Diagram: 09/25/1760909/25/17609 Objective Remarks GENERAL: Well-nourished, well-developed patient. SKIN: Warm and dry. HEAD: Normocephalic. EYES: No scleral icterus. No injection or drainage. NECK: Supple, trachea midline. No JVD or lymphadenopathy. CARDIOVASCULAR: Regular rate and rhythm without murmurs, gallops, or rubs. RESPIRATORY: Audible rub on right lung greater than left. Anterior congestive sounds. No accessory muscle use. GASTROINTESTINAL: Abdomen soft, non-tender, nondistended. EXTREMITIES: No cyanosis, or edema. NEUROLOGICAL: Awake, alert, and oriented x 3. Non-focal. A/P Problem List: (1) Cavitary lesion of lung ICD Code: J98.4 - Other disorders of lung Status: Acute (2) ACS (acute coronary syndrome) ICD Code: I24.9 - Acute ischemic heart disease, unspecified Status: Acute (3) Hyponatremia ICD Code: E87.1 - Hypo-osmolality and hyponatremia Status: Acute (4) COPD (chronic obstructive pulmonary disease) ICD Code: J44.9 - Chronic obstructive pulmonary disease, unspecified Status: Acute (5) Hypertensive urgency ICD Code: I16.0 - Hypertensive urgency Assessment and Plan Cavitary lesion of the lung Patient denies night sweats, denies pattern of hemoptysis He has been fighting an upper respiratory infection with sore throat He did have a previous "scar" seen on CT scan a year ago Rapid TB test results pending Repeat CT ordered Acute coronary syndrome Borderline elevations of troponins Cardiac stress test recommended by cardiology when TB status is lifted Appreciate cardiology consult COPD with respiratory infection Rule out TB as above, cover for more common infections Continue azithromycin with cefepime Hypertension Continue home meds Hyponatremia Resolved DVT prophylaxis Heparin Robert Willard MD Sep 25, 2017 17:40
[2017-09-25] MEDS: HEPARIN-D5W 25,000 U/250 ML 250 ML IV PRN (19:28)
[2017-09-25] MEDS: ATORVASTATIN 20 MG TAB PO SCH (21:39)
[2017-09-25] MEDS: LORazepam 1 MG TAB PO PRN (21:48)
[2017-09-26] VITALS (30 sets, daily range): BP systolic 151–158; BP diastolic 67–89; PULSE 50–86; RESP 16–20; TEMP 98.1–98.5; O2SAT 95–98
[2017-09-26] MEDS: SODIUM CHLOR 0.9% 1000 ML INJ 1,000 ML IV SCH ×2 (01:15→12:40)
[2017-09-26] MEDS: AZITHROMYCIN INJ 500 MG in SODIUM CHLOR 0.9% 250 ML INJ 250 ML IV SCH (03:30)
[2017-09-26] MEDS: CEFEPIME INJ 1,000 MG in SODIUM CHLORIDE 0.9% INJ 100 ML IV SCH ×3 (06:05→23:51)
[2017-09-26] MEDS: RESP: ALBUTEROL 2.5 MG/IPRATROPIUM 0.5 MG NEB (SCH) NEB ×3 (09:27→19:28)
[2017-09-26] MEDS: BUDESONIDE-FORMOTEROL 160/4.5 MCG INHALER INH SCH ×2 (10:04→20:32)
[2017-09-26] MEDS: FOLIC ACID 1 MG TAB PO SCH (10:04)
[2017-09-26] MEDS: MULTIVITAMINS/MINERALS THERAPEUTIC TAB PO SCH (10:04)
[2017-09-26] MEDS: METOPROLOL TARTRATE 25 MG TAB PO SCH ×2 (10:05→20:31)
[2017-09-26] MEDS: DOCUSATE SODIUM 50 MG/SENNA 8.6 MG TAB PO SCH ×2 (10:05→20:31)
[2017-09-26] MEDS: amLODIPine BESYLATE 5 MG TAB PO SCH (10:05)
[2017-09-26] MEDS: ASPIRIN 81 MG CHEW TAB CHEW SCH (10:05)
[2017-09-26] MEDS: THIAMINE HCL 100 MG TAB PO SCH (10:05)
[2017-09-26] MEDS: SODIUM CHLORIDE 0.9% FLUSH 10 ML FLUSH IV FLUSH SCH ×2 (10:06→20:31)
[2017-09-26] MEDS: HEPARIN-D5W 25,000 U/250 ML 250 ML IV PRN (12:37)
[2017-09-26] MEDS: ATORVASTATIN 20 MG TAB PO SCH (20:31)
--- NOTE | 2017-09-26 22:10 | HHI.PR ---
Subjective Remarks Feeling better Objective Vital Signs Date Time Temp Pulse Resp B/P (MAP) Pulse Ox O2 Delivery O2 Flow Rate FiO2 09/26/17 20:33 98.1 66 20 157/89 (111) 95 09/26/17 19:30 96 Nasal Cannula 3.00 09/26/17 18:38 63 09/26/17 17:00 60 09/26/17 16:00 68 09/26/17 15:00 98.2 69 20 157/67 (97) 96 09/26/17 15:00 80 09/26/17 14:00 70 09/26/17 13:00 56 09/26/17 12:00 60 09/26/17 11:41 98.2 61 20 151/81 (104) 97 09/26/17 11:00 50 09/26/17 10:00 56 09/26/17 09:29 98 Nasal Cannula 3.00 09/26/17 09:00 58 09/26/17 08:00 50 09/26/17 07:30 98.5 68 18 158/84 (108) 95 09/26/17 07:00 70 09/26/17 06:00 50 09/26/17 05:00 56 09/26/17 04:00 58 09/26/17 03:30 58 16 155/73 (100) 97 09/26/17 03:00 63 09/26/17 02:00 86 09/26/17 01:00 58 09/26/17 00:00 58 09/25/17 23:00 61 16 149/66 (93) 95 09/25/17 23:00 55 I/O 09/25/17 09/25/17 09/25/17 09/26/17 09/26/17 09/26/17 07:00 15:00 23:00 07:00 15:00 23:00 Intake Total 1490 ml 168.9 ml 1070 ml 1240 ml 720 ml Output Total 500 ml 900 ml 600 ml 1050 ml Balance 990 ml 168.9 ml 170 ml 640 ml -330 ml Intake Oral 240 ml 720 ml 240 ml 720 ml IV Total 1250 ml 168.9 ml 350 ml 1000 ml Output Urine Total 500 ml 900 ml 600 ml 1050 ml # Bowel Movements 0 0 0 Result Diagram: 4/22/18 0610 4/22/18 0610 Imaging Alert, fully oriented Lungs: ventilated Heart: S1, S2 regular, no gallop Abdomen: soft, no mass, obese Ext: no edema Last Impressions Chest X-Ray 09/23/17 7312 Signed Impressions: Service Date/Time: Saturday, September 23, 2017 23:49 - CONCLUSION: Suspected cavitary lesion involving the left upper lobe. CT of the thorax is suggested to further evaluate. Todd Figueredo Jr., MD Current Medications Medications (Trade) Dose Ordered Sig/Trey Route Start Time Stop Time Status Last Admin (Symbicort 160-4.5 Mcg Inh) 2 puff Q12HR INH 09/24/17 09:00 09/26/17 20:32 (NS Flush) 2 ml UNSCH PRN IV FLUSH 09/24/17 01:00 (NS Flush) 2 ml BID IV FLUSH 09/24/17 09:00 09/26/17 20:31 (Zofran Inj) 4 mg Q6H PRN IVP 09/24/17 01:00 09/24/17 02:30 (Tylenol) 650 mg Q6H PRN PO 09/24/17 01:00 09/25/17 21:40 (Natalia 5-325 Mg) 1 tab Q4H PRN PO 09/24/17 01:00 (Morphine Inj) 2 mg Q3H PRN IV PUSH 09/24/17 01:00 (Trina-Colace) 1 tab BID PO 09/24/17 09:00 09/26/17 20:31 (Milk Of Magnesia Liq) 30 ml Q12H PRN PO 09/24/17 01:00 (Senokot) 17.2 mg Q12H PRN PO 09/24/17 01:00 (Dulcolax Supp) 10 mg DAILY PRN RECTAL 09/24/17 01:00 (Lactulose Liq) 30 ml DAILY PRN PO 09/24/17 01:00 (Aspirin Chew) 81 mg DAILY CHEW 09/24/17 09:00 09/26/17 10:05 (Folate) 1 mg DAILY PO 09/24/17 09:00 09/29/17 08:59 09/26/17 10:04 (Vitamin B1) 100 mg DAILY PO 09/24/17 09:00 09/26/17 10:05 (Theragran M Tab) 1 tab DAILY PO 09/24/17 09:00 09/29/17 08:59 09/26/17 10:04 (Romazicon Inj) 0.2 mg Q1M PRN IV PUSH 09/24/17 01:00 (Ativan) 1 mg Q4H PRN PO 09/24/17 01:00 09/25/17 21:48 (Ativan Inj) 1 mg Q4H PRN IV PUSH 09/24/17 01:00 (Ativan) 2 mg Q2H PRN PO 09/24/17 01:00 (Ativan Inj) 2 mg Q2H PRN IV PUSH 09/24/17 01:00 09/24/17 09:47 (Ativan Inj) 2 mg Q1H PRN IV PUSH 09/24/17 01:00 (Ativan Inj) 2 mg Q15M PRN IV PUSH 09/24/17 01:00 (Haldol Inj) 2 mg Q15M PRN IM 09/24/17 01:00 Heparin Sodium/ Dextrose 250 ml @ 10 mls/hr TITRATE PRN IV 09/24/17 01:00 09/26/17 12:37 (Compazine) 5 mg Q6H PRN PO 09/24/17 07:45 09/24/17 08:13 Cefepime HCl 1000 mg/Sodium Chloride 100 ml @ 200 mls/hr Q8H IV 09/24/17 14:00 09/26/17 15:03 Azithromycin 500 mg/Sodium Chloride 250 ml @ 250 mls/hr Q24H IV 09/25/17 03:00 09/26/17 03:30 (Duoneb Neb) 1 ampule Q6HR WHILE AWAKE NEB NEB 09/24/17 14:00 09/26/17 19:28 (Duoneb Neb) 1 ampule Q2HR NEB PRN NEB 09/24/17 13:15 (Lopressor) 12.5 mg Q12HR PO 09/24/17 21:00 09/26/17 20:31 (Lipitor) 20 mg HS PO 09/24/17 21:00 09/26/17 20:31 (Norvasc) 5 mg DAILY PO 09/25/17 11:45 09/26/17 10:05 Assessment and Plan Problem List: (1) ACS (acute coronary syndrome) ICD Codes: I24.9 - Acute ischemic heart disease, unspecified Status: Acute Plan: No chest pain. The isolation for TB removed Nuclear stress study will be requested Case discussed with patient Some tremor observed. Possible alcohol withdrawal (2) Hypertensive urgency ICD Codes: I16.0 - Hypertensive urgency Plan: BP 157 Meds will be revaluated Jonathan Pandey MD Sep 26, 2017 22:10
--- NOTE | 2017-09-26 23:18 | HHI.PR ---
Subjective Remarks Deferred entry - patient seen at 1550 hrs PAtient denies cp/sob Objective Vitals Vital Signs Date Time Temp Pulse Resp B/P (MAP) Pulse Ox O2 Delivery O2 Flow Rate FiO2 09/26/17 20:33 98.1 66 20 157/89 (111) 95 09/26/17 19:30 96 Nasal Cannula 3.00 09/26/17 18:38 63 09/26/17 17:00 60 09/26/17 16:00 68 09/26/17 15:00 98.2 69 20 157/67 (97) 96 09/26/17 15:00 80 09/26/17 14:00 70 09/26/17 13:00 56 09/26/17 12:00 60 09/26/17 11:41 98.2 61 20 151/81 (104) 97 09/26/17 11:00 50 09/26/17 10:00 56 09/26/17 09:29 98 Nasal Cannula 3.00 09/26/17 09:00 58 09/26/17 08:00 50 09/26/17 07:30 98.5 68 18 158/84 (108) 95 09/26/17 07:00 70 09/26/17 06:00 50 09/26/17 05:00 56 09/26/17 04:00 58 09/26/17 03:30 58 16 155/73 (100) 97 09/26/17 03:00 63 09/26/17 02:00 86 09/26/17 01:00 58 09/26/17 00:00 58 I/O 09/26/17 09/26/17 09/26/17 09/27/17 09/27/17 09/27/17 07:00 15:00 23:00 07:00 15:00 23:00 Intake Total 1240 ml 720 ml Output Total 600 ml 1050 ml Balance 640 ml -330 ml Intake Oral 240 ml 720 ml IV Total 1000 ml Output Urine Total 600 ml 1050 ml # Bowel Movements 0 Result Diagram: 09/25/17 0610 09/25/17 0610 Imaging Last Impressions Chest X-Ray 09/23/17 1744 Signed Impressions: Service Date/Time: Saturday, September 23, 2017 23:49 - CONCLUSION: Suspected cavitary lesion involving the left upper lobe. CT of the thorax is suggested to further evaluate. Todd Figueredo Jr., MD Objective Remarks AAox3 Diffuse BL expiratory wheezing S1S2 RRR, no MRG no edema or JVD Medications and IVs Current Medications Medications (Trade) Dose Ordered Sig/Trey Route Start Time Stop Time Status Last Admin (Symbicort 160-4.5 Mcg Inh) 2 puff Q12HR INH 09/24/17 09:00 09/26/17 20:32 (NS Flush) 2 ml UNSCH PRN IV FLUSH 09/24/17 01:00 (NS Flush) 2 ml BID IV FLUSH 09/24/17 09:00 09/26/17 20:31 (Zofran Inj) 4 mg Q6H PRN IVP 09/24/17 01:00 09/24/17 02:30 (Tylenol) 650 mg Q6H PRN PO 09/24/17 01:00 09/25/17 21:40 ([place] 5-325 Mg) 1 tab Q4H PRN PO 09/24/17 01:00 (Morphine Inj) 2 mg Q3H PRN IV PUSH 09/24/17 01:00 (Trina-Colace) 1 tab BID PO 09/24/17 09:00 09/26/17 20:31 (Milk Of Magnesia Liq) 30 ml Q12H PRN PO 09/24/17 01:00 (Senokot) 17.2 mg Q12H PRN PO 09/24/17 01:00 (Dulcolax Supp) 10 mg DAILY PRN RECTAL 09/24/17 01:00 (Lactulose Liq) 30 ml DAILY PRN PO 09/24/17 01:00 (Aspirin Chew) 81 mg DAILY CHEW 09/24/17 09:00 09/26/17 10:05 (Folate) 1 mg DAILY PO 09/24/17 09:00 09/29/17 08:59 09/26/17 10:04 (Vitamin B1) 100 mg DAILY PO 09/24/17 09:00 09/26/17 10:05 (Theragran M Tab) 1 tab DAILY PO 09/24/17 09:00 09/29/17 08:59 09/26/17 10:04 (Romazicon Inj) 0.2 mg Q1M PRN IV PUSH 09/24/17 01:00 (Ativan) 1 mg Q4H PRN PO 09/24/17 01:00 09/26/17 23:51 (Ativan Inj) 1 mg Q4H PRN IV PUSH 09/24/17 01:00 (Ativan) 2 mg Q2H PRN PO 09/24/17 01:00 (Ativan Inj) 2 mg Q2H PRN IV PUSH 09/24/17 01:00 09/24/17 09:47 (Ativan Inj) 2 mg Q1H PRN IV PUSH 09/24/17 01:00 (Ativan Inj) 2 mg Q15M PRN IV PUSH 09/24/17 01:00 (Haldol Inj) 2 mg Q15M PRN IM 09/24/17 01:00 Heparin Sodium/ Dextrose 250 ml @ 10 mls/hr TITRATE PRN IV 09/24/17 01:00 09/26/17 12:37 (Compazine) 5 mg Q6H PRN PO 09/24/17 07:45 09/24/17 08:13 Cefepime HCl 1000 mg/Sodium Chloride 100 ml @ 200 mls/hr Q8H IV 09/24/17 14:00 09/26/17 23:51 Azithromycin 500 mg/Sodium Chloride 250 ml @ 250 mls/hr Q24H IV 09/25/17 03:00 09/26/17 03:30 (Duoneb Neb) 1 ampule Q6HR WHILE AWAKE NEB NEB 09/24/17 14:00 09/26/17 19:28 (Duoneb Neb) 1 ampule Q2HR NEB PRN NEB 09/24/17 13:15 (Lopressor) 12.5 mg Q12HR PO 09/24/17 21:00 09/26/17 20:31 (Lipitor) 20 mg HS PO 09/24/17 21:00 09/26/17 20:31 (Norvasc) 5 mg DAILY PO 09/25/17 11:45 09/26/17 10:05 A/P Problem List: (1) Cavitary lesion of lung ICD Code: J98.4 - Other disorders of lung Status: Acute Plan: Broad-spectrum antibiotics, cefepime and azithromycin 09/26 M tuberculosis DNA PCR negative - Consult ID and Pulmonology. Continue Cefepime IV and IV Azithromycin. (2) ACS (acute coronary syndrome) ICD Code: I24.9 - Acute ischemic heart disease, unspecified Status: Acute Plan: Patient recently had quite a bit of exertion and felt that his chest pain started after that. Cardiac enzymes appear to be trending down. Will follow with cardiology of systems Continue with morphine as needed, nitro, aspirin, beta-jennie 09/26 Continue heparin drip. Appreciate cardiology recommendations. Patient for stress test in am. EKG reviewed by me with Sinus rythm and inferior Q waves. No ST segment elevation or depression. (3) Hyponatremia ICD Code: E87.1 - Hypo-osmolality and hyponatremia Status: Acute Plan: 09/26 Due to hypovolemic hyponatremia due to dehydration. Continue IV fluids. (4) COPD (chronic obstructive pulmonary disease) ICD Code: J44.9 - Chronic obstructive pulmonary disease, unspecified Status: Acute Plan: Diffuse BL expiratory wheezing on exam - patient requiring more oxygen - currenty on 3 liters. Start on IV solumedrol Supplemental o2 to keep o2 sat >92% (5) Hypertensive urgency ICD Code: I16.0 - Hypertensive urgency Plan: With evidence of acute cardiac injury Continue with IV blood pressure medications, continue with date of jennie, aspirin and follow-up clinically 09/26 BP improving. Fu BP trends and adjust medications accordingly. Patient started on amlodipine. (6) Alcohol abuse ICD Code: F10.10 - Alcohol abuse, uncomplicated Status: Acute Plan: CIWA Folic acid Thiamine (7) Smoking addiction ICD Code: F17.200 - Nicotine dependence, unspecified, uncomplicated Status: Acute Plan: Advised smoking cessaton for more than 3 minutes. Assessment and Plan DVT prophylaxis: on heparin drip. SCD's Discharge Planning For stress test in am. BP still elevated. Patient with copd exacerbation. Problem Qualifiers (1) COPD (chronic obstructive pulmonary disease): Qualified Codes: J44.1 - Chronic obstructive pulmonary disease with (acute) exacerbation Varinder Kingsley MD Sep 26, 2017 23:18
[2017-09-26] MEDS: LORazepam 1 MG TAB PO PRN (23:51)
[2017-09-27] VITALS (23 sets, daily range): BP systolic 155–173; BP diastolic 65–89; PULSE 54–101; RESP 18–20; TEMP 97.4–98.4; O2SAT 93–97
[2017-09-27] MEDS ORDERED: methylPREDNISolone SOD SUCC 125 MG/2 ML VIAL IV PUSH ONE (00:15)
[2017-09-27] MEDS: AZITHROMYCIN INJ 500 MG in SODIUM CHLOR 0.9% 250 ML INJ 250 ML IV SCH (03:24)
[2017-09-27] MEDS: HEPARIN-D5W 25,000 U/250 ML 250 ML IV PRN ×2 (04:55→23:28)
[2017-09-27 06:20] LABS: HEMATOCRIT 35.6 % (39.0-51.0); HEMOGLOBIN 12.2 GM/DL (13.0-17.0); MEAN CELL VOLUME 92.3 FL (80.0-100.0); MEAN CORPUSCULAR HEMOGLOBIN 31.6 PG (27.0-34.0); MEAN CORPUSCULAR HGB CONC 34.2 % (32.0-36.0); MEAN PLATELET VOLUME 6.8 FL (7.0-11.0); PLATELET COUNT 240 TH/MM3 (150-450); RED BLOOD COUNT 3.86 MIL/MM3 (4.50-5.90); RED CELL DISTRIBUTION WIDTH 15.2 % (11.6-17.2)
[2017-09-27] MEDS: CEFEPIME INJ 1,000 MG in SODIUM CHLORIDE 0.9% INJ 100 ML IV SCH ×3 (06:37→21:28)
--- NOTE | 2017-09-27 06:37 | MB ---
cc: Jose Ratliff MD DATE: 09/26/2017 REQUESTING PHYSICIAN: Dr. Megan Willard. REASON FOR CONSULTATION: Cavitary lesion of the lung. HISTORY OF PRESENT ILLNESS: Mr. Hutchinson is a pleasant 67-year-old male with a history of COPD, hypertension, hypercholesteremia and a long history of smoking and continues to smoked 1 and a 1/2 packs a day. The patient was having cough and congestion. Cough has been for 2 weeks, but last Tuesday, his cough was bad he started throwing up. He recently had a chest x-ray done, which was abnormal. He had a CT scan of the chest done at [facility], the result is not available, but he does tell me that 2 years ago he had a left upper lobe density and he had a CAT scan done at [facility] and was told he had a scarring in the left upper lobe. He has a cough with sputum production. No fever or chills. No night sweats, no hemoptysis, no weight loss. He had a workup done on, his WBC count is 6.7, hemoglobin 12.5, hematocrit 36.6, MCV 91, platelet count 265. Sodium 136, potassium 3.9, chloride 99, CO2 29, BUN 9, creatinine 0.69. He is on heparin. PAST MEDICAL HISTORY: Significant for a history of hypertension, hyperlipidemia, and COPD. MEDICATIONS: He takes simvastatin, lisinopril/HCTZ and Combivent at home. Currently, he is taking amlodipine 5 mg, Zithromax 500 mg, metoprolol 12.5 mg every 12 hours, Lipitor 20 mg a day, cefepime q. 8 hours, albuterol/Atrovent nebulizer treatment, Symbicort 160/4.5 two puffs twice a day, aspirin 81 mg a day, Lortab p.r.n., lorazepam p.r.n. ALLERGIES: NO KNOWN DRUG ALLERGIES. SOCIAL HISTORY: He is . He has a long history of smoking 2-1/2 pack a day. He drinks 2-3 drinks at night and no drug use. 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 FAMILY HISTORY: He is . He has 4 children between him and his . REVIEW OF SYSTEMS: Weight is stable. No DVT or pulmonary embolism. No seizure, stroke or epilepsy. PHYSICAL EXAMINATION: GENERAL: Reveals a well-built, well-nourished, elderly male, not in any acute distress. VITAL SIGNS: Blood pressure is 157/89, heart rate 66, respirations 20, temperature 98.1. HEENT: Unremarkable. NECK: Supple. JVP noted. CHEST: Equal bilateral. No rhonchi. CARDIOVASCULAR: S1, S2 normal. ABDOMEN: Benign. EXTREMITIES: No edema. IMPRESSION: 1. Left upper lobe cavitary lesion which is at least 2 years old. I need to review the previous CT scan. 2. Hypertension. 3. Hyperlipidemia. 4. Chronic obstructive pulmonary disease. 5. Nicotine use. 6. Chest pain. PLAN: He is going to have a nuclear stress test. I will review the CT scan of the chest at [facility]. If there is any acute lesion, I would consider bronchoscopy. Continue his present antibiotic and aerosol treatment. He is scheduled for a nuclear stress test tomorrow. Further details will depend upon the course in the hospital. Thank you, Dr. Robert Willard for this consult. Jose Ratliff MD ADA/DL , 09:10 PM , 06:36 AM
[2017-09-27] MEDS: RESP: ALBUTEROL 2.5 MG/IPRATROPIUM 0.5 MG NEB (SCH) NEB ×3 (07:21→19:11)
--- NOTE | 2017-09-27 07:45 | PD.CARD.PN ---
Subjective Subjective Remarks No chest pain, pending nuclear stress today. Objective Medications Current Medications Medications (Trade) Dose Ordered Sig/Trey Route Start Time Stop Time Status Last Admin (Symbicort 160-4.5 Mcg Inh) 2 puff Q12HR INH 09/24/17 09:00 09/26/17 20:32 (NS Flush) 2 ml UNSCH PRN IV FLUSH 09/24/17 01:00 (NS Flush) 2 ml BID IV FLUSH 09/24/17 09:00 09/26/17 20:31 (Zofran Inj) 4 mg Q6H PRN IVP 09/24/17 01:00 09/24/17 02:30 (Tylenol) 650 mg Q6H PRN PO 09/24/17 01:00 09/25/17 21:40 ([place] 5-325 Mg) 1 tab Q4H PRN PO 09/24/17 01:00 (Morphine Inj) 2 mg Q3H PRN IV PUSH 09/24/17 01:00 (Trina-Colace) 1 tab BID PO 09/24/17 09:00 09/26/17 20:31 (Milk Of Magnesia Liq) 30 ml Q12H PRN PO 09/24/17 01:00 (Senokot) 17.2 mg Q12H PRN PO 09/24/17 01:00 (Dulcolax Supp) 10 mg DAILY PRN RECTAL 09/24/17 01:00 (Lactulose Liq) 30 ml DAILY PRN PO 09/24/17 01:00 (Aspirin Chew) 81 mg DAILY CHEW 09/24/17 09:00 09/26/17 10:05 (Folate) 1 mg DAILY PO 09/24/17 09:00 09/29/17 08:59 09/26/17 10:04 (Vitamin B1) 100 mg DAILY PO 09/24/17 09:00 09/26/17 10:05 (Theragran M Tab) 1 tab DAILY PO 09/24/17 09:00 09/29/17 08:59 09/26/17 10:04 (Romazicon Inj) 0.2 mg Q1M PRN IV PUSH 09/24/17 01:00 (Ativan) 1 mg Q4H PRN PO 09/24/17 01:00 09/26/17 23:51 (Ativan Inj) 1 mg Q4H PRN IV PUSH 09/24/17 01:00 (Ativan) 2 mg Q2H PRN PO 09/24/17 01:00 (Ativan Inj) 2 mg Q2H PRN IV PUSH 09/24/17 01:00 09/24/17 09:47 (Ativan Inj) 2 mg Q1H PRN IV PUSH 09/24/17 01:00 (Ativan Inj) 2 mg Q15M PRN IV PUSH 09/24/17 01:00 (Haldol Inj) 2 mg Q15M PRN IM 09/24/17 01:00 Heparin Sodium/ Dextrose 250 ml @ 10 mls/hr TITRATE PRN IV 09/24/17 01:00 09/27/17 04:55 (Compazine) 5 mg Q6H PRN PO 09/24/17 07:45 09/24/17 08:13 Cefepime HCl 1000 mg/Sodium Chloride 100 ml @ 200 mls/hr Q8H IV 09/24/17 14:00 09/27/17 06:37 Azithromycin 500 mg/Sodium Chloride 250 ml @ 250 mls/hr Q24H IV 09/25/17 03:00 09/27/17 03:24 (Duoneb Neb) 1 ampule Q6HR WHILE AWAKE NEB NEB 09/24/17 14:00 09/27/17 07:21 (Duoneb Neb) 1 ampule Q2HR NEB PRN NEB 09/24/17 13:15 (Lopressor) 12.5 mg Q12HR PO 09/24/17 21:00 09/26/17 20:31 (Lipitor) 20 mg HS PO 09/24/17 21:00 09/26/17 20:31 (Norvasc) 5 mg DAILY PO 09/25/17 11:45 09/26/17 10:05 (SoluMEDROL INJ) 40 mg Q6HR IV PUSH 09/27/17 06:00 Vital Signs / I&O Vital Signs Date Time Temp Pulse Resp B/P (MAP) Pulse Ox O2 Delivery O2 Flow Rate FiO2 09/27/17 07:24 94 Nasal Cannula 4.00 09/27/17 06:00 59 09/27/17 05:00 62 09/27/17 04:00 59 09/27/17 04:00 98.2 56 18 155/87 (109) 95 09/27/17 03:06 63 09/27/17 02:05 54 09/27/17 01:00 62 09/27/17 00:00 98.4 69 20 157/89 (111) 96 09/27/17 00:00 63 09/26/17 23:00 63 09/26/17 22:00 62 09/26/17 21:00 55 09/26/17 20:33 98.1 66 20 157/89 (111) 95 09/26/17 20:00 62 09/26/17 19:30 96 Nasal Cannula 3.00 09/26/17 19:00 66 09/26/17 18:38 63 09/26/17 17:00 60 09/26/17 16:00 68 09/26/17 15:00 98.2 69 20 157/67 (97) 96 09/26/17 15:00 80 09/26/17 14:00 70 09/26/17 13:00 56 09/26/17 12:00 60 09/26/17 11:41 98.2 61 20 151/81 (104) 97 09/26/17 11:00 50 09/26/17 10:00 56 09/26/17 09:29 98 Nasal Cannula 3.00 09/26/17 09:00 58 09/26/17 08:00 50 I/O 09/26/17 09/26/17 09/26/17 09/27/17 09/27/17 09/27/17 07:00 15:00 23:00 07:00 15:00 23:00 Intake Total 1240 ml 720 ml 240 ml Output Total 600 ml 1050 ml 1025 ml Balance 640 ml -330 ml -785 ml Intake Oral 240 ml 720 ml 240 ml IV Total 1000 ml Output Urine Total 600 ml 1050 ml 1025 ml # Bowel Movements 0 Physical Exam GENERAL: Well-nourished, well-developed patient. SKIN: Warm and dry. HEAD: Normocephalic. EYES: No scleral icterus. No injection or drainage. NECK: Supple, trachea midline. No JVD or lymphadenopathy. CARDIOVASCULAR: Regular rate and rhythm without murmurs, gallops, or rubs. RESPIRATORY: Breath sounds equal bilaterally. No accessory muscle use. GASTROINTESTINAL: Abdomen soft, non-tender, nondistended. EXTREMITIES: No cyanosis, or edema. NEUROLOGICAL: Awake, alert, and oriented x 3. Non-focal. Laboratory Laboratory Tests Test 09/26/17 08:40 09/27/17 05:45 Activated Partial Thromboplast Time 53.3 SEC 47.4 SEC White Blood Count 8.0 TH/MM3 Red Blood Count 3.86 MIL/MM3 Hemoglobin 12.2 GM/DL Hematocrit 35.6 % Mean Corpuscular Volume 92.3 FL Mean Corpuscular Hemoglobin 31.6 PG Mean Corpuscular Hemoglobin Concent 34.2 % Red Cell Distribution Width 15.2 % Platelet Count 240 TH/MM3 Mean Platelet Volume 6.8 FL Imaging Last Impressions Chest X-Ray 09/23/17 4204 Signed Impressions: Service Date/Time: Saturday, September 23, 2017 23:49 - CONCLUSION: Suspected cavitary lesion involving the left upper lobe. CT of the thorax is suggested to further evaluate. Todd Figueredo Jr., MD Assessment and Plan Problem List: (1) ACS (acute coronary syndrome) ICD Codes: I24.9 - Acute ischemic heart disease, unspecified Status: Acute Plan: No chest pain today. Pending nuclear stress test. (2) Hypertensive urgency ICD Codes: I16.0 - Hypertensive urgency Plan: Improving on current medications. Assessment and Plan If nuclear stress is negative, patient can be discharged from an EP standpoint when cleared by managing team. Further assessment and management pending the results of the myocardial perfusion scan per my discussion with Dr. Pandey. Mary Rodriguez Sep 27, 2017 07:45
[2017-09-27] MEDS: methylPREDNISolone SOD SUCC 40 MG/1 ML VIAL IV PUSH SCH ×3 (08:48→21:30)
[2017-09-27] MEDS: ASPIRIN 81 MG CHEW TAB CHEW SCH (08:48)
[2017-09-27] MEDS: MULTIVITAMINS/MINERALS THERAPEUTIC TAB PO SCH (08:49)
[2017-09-27] MEDS: SODIUM CHLORIDE 0.9% FLUSH 10 ML FLUSH IV FLUSH SCH ×2 (08:49→21:00)
[2017-09-27] MEDS: amLODIPine BESYLATE 5 MG TAB PO SCH (08:49)
[2017-09-27] MEDS: METOPROLOL TARTRATE 25 MG TAB PO SCH ×2 (08:49→21:28)
[2017-09-27] MEDS: FOLIC ACID 1 MG TAB PO SCH (08:49)
[2017-09-27] MEDS: THIAMINE HCL 100 MG TAB PO SCH (08:49)
[2017-09-27] MEDS: DOCUSATE SODIUM 50 MG/SENNA 8.6 MG TAB PO SCH ×2 (08:49→21:00)
[2017-09-27] MEDS ORDERED: REGADENOSON INJ 0.4 MG/5 ML SYR ONE (10:31)
--- NOTE | 2017-09-27 11:40 | RADRPT ---
EXAM DATE/TIME: 09/27/2017 10:25 [place] COMPARISON: No previous studies available for comparison. INDICATIONS : Substernal chest pain. Angina. DOSE: 25.4 mCi Tc99m Myoview at stress. 8.5 mCi Tc99m Myoview at rest. 0.4 mg Lexiscan STRESS SYMPTOMS: Asymptomatic. EJECTION FRACTION: 44% MEDICAL HISTORY : Hypertension. SURGICAL HISTORY : Right nephrectomy. ENCOUNTER: Initial ACUITY: 1 day PAIN SCALE: 4/10 LOCATION: Substernal chest TECHNIQUE: The patient underwent pharmacologic stress with infusion of prescribed dose. Continuous ECG tracing was monitored during stress. Gated SPECT imaging was performed after stress and conventional SPECT i maging was performed at rest. The examination was performed on a SPECT/CT scanner, both attenuation and non-corrected datasets were reviewed. FINDINGS: DISTRIBUTION: The maximum perfused segment at stress is in the lateral wall. PERFUSION STUDY: The pattern of perfusion at stress is within normal limits. GATED STUDY: Global hypokinesis noted. No focal wall motion abnormalities. CONCLUSION: Decreased ejection fraction measuring 44%. Global hypokinesis. No focal perfusion defect or focal wal l motion abnormality. RISK CATEGORY: 2- Intermediate Risk. Hardik Ponce MD on September 27, 2017 at 11:35 Board Certified Radiologist. This report was verified electronically.
[2017-09-27] MEDS: BUDESONIDE-FORMOTEROL 160/4.5 MCG INHALER INH SCH ×2 (11:44→21:30)
[2017-09-27] MEDS ORDERED: GLUCAGON 1 MG/ML VIAL OTHER PRN (17:30)
[2017-09-27] MEDS ORDERED: DEXTROSE 50% IN WATER 50 ML VIAL(D50) IV PUSH PRN (17:30)
--- NOTE | 2017-09-27 17:32 | HHI.PR ---
Subjective Remarks Deferred entry, the patient was seen at Blood sugar is elevated. Patient states breathing is much improved, denies chest pain. Denies fevers or chills, cough Objective Vitals Vital Signs Date Time Temp Pulse Resp B/P (MAP) Pulse Ox O2 Delivery O2 Flow Rate FiO2 09/27/17 15:30 97.7 91 18 173/80 (111) 95 09/27/17 15:00 90 09/27/17 14:00 74 09/27/17 13:00 80 09/27/17 11:45 97.5 67 20 165/85 (111) 95 09/27/17 09:00 86 09/27/17 08:00 62 09/27/17 07:45 97.4 62 18 166/65 (98) 97 09/27/17 07:24 94 Nasal Cannula 4.00 09/27/17 07:00 60 09/27/17 06:00 59 09/27/17 05:00 62 09/27/17 04:00 59 09/27/17 04:00 98.2 56 18 155/87 (109) 95 09/27/17 03:06 63 09/27/17 02:05 54 09/27/17 01:00 62 09/27/17 00:00 98.4 69 20 157/89 (111) 96 09/27/17 00:00 63 09/26/17 23:00 63 09/26/17 22:00 62 09/26/17 21:00 55 09/26/17 20:33 98.1 66 20 157/89 (111) 95 09/26/17 20:00 62 09/26/17 19:30 96 Nasal Cannula 3.00 09/26/17 19:00 66 09/26/17 18:38 63 I/O 09/26/17 09/26/17 09/26/17 09/27/17 09/27/17 09/27/17 07:00 15:00 23:00 07:00 15:00 23:00 Intake Total 1240 ml 1250 ml 1360 ml 240 ml Output Total 600 ml 1050 ml 1025 ml Balance 640 ml 1250 ml 310 ml -785 ml Intake Oral 240 ml 720 ml 240 ml IV Total 1000 ml 1250 ml 640 ml Output Urine Total 600 ml 1050 ml 1025 ml # Bowel Movements 0 Result Diagram: 09/27/17 0545 09/25/17 0610 Imaging Last Impressions Myocardial Perfusion Scan Nuc Med 09/27/17 0000 Signed Impressions: Service Date/Time: Wednesday, September 27, 2017 10:25 - CONCLUSION: Decreased ejection fraction measuring 44%%. Global hypokinesis. No focal perfusion defect or focal wall motion abnormality. RISK CATEGORY: 2- Intermediate Risk. Hardik Ponce MD Chest X-Ray 09/23/17 5614 Signed Impressions: Service Date/Time: Saturday, September 23, 2017 23:49 - CONCLUSION: Suspected cavitary lesion involving the left upper lobe. CT of the thorax is suggested to further evaluate. Todd Figueredo Jr., MD Objective Remarks AAox3 Diffuse BL expiratory wheezing S1S2 RRR, no MRG no edema or JVD Medications and IVs Current Medications Medications (Trade) Dose Ordered Sig/Trey Route Start Time Stop Time Status Last Admin (Symbicort 160-4.5 Mcg Inh) 2 puff Q12HR INH 09/24/17 09:00 09/27/17 11:44 (NS Flush) 2 ml UNSCH PRN IV FLUSH 09/24/17 01:00 (NS Flush) 2 ml BID IV FLUSH 09/24/17 09:00 09/26/17 20:31 (Zofran Inj) 4 mg Q6H PRN IVP 09/24/17 01:00 09/24/17 02:30 (Tylenol) 650 mg Q6H PRN PO 09/24/17 01:00 09/25/17 21:40 ([place] 5-325 Mg) 1 tab Q4H PRN PO 09/24/17 01:00 (Morphine Inj) 2 mg Q3H PRN IV PUSH 09/24/17 01:00 (Trina-Colace) 1 tab BID PO 09/24/17 09:00 09/27/17 08:49 (Milk Of Magnesia Liq) 30 ml Q12H PRN PO 09/24/17 01:00 (Senokot) 17.2 mg Q12H PRN PO 09/24/17 01:00 (Dulcolax Supp) 10 mg DAILY PRN RECTAL 09/24/17 01:00 (Lactulose Liq) 30 ml DAILY PRN PO 09/24/17 01:00 (Aspirin Chew) 81 mg DAILY CHEW 09/24/17 09:00 09/27/17 08:48 (Folate) 1 mg DAILY PO 09/24/17 09:00 09/29/17 08:59 09/27/17 08:49 (Vitamin B1) 100 mg DAILY PO 09/24/17 09:00 09/27/17 08:49 (Theragran M Tab) 1 tab DAILY PO 09/24/17 09:00 09/29/17 08:59 09/27/17 08:49 (Romazicon Inj) 0.2 mg Q1M PRN IV PUSH 09/24/17 01:00 (Ativan) 1 mg Q4H PRN PO 09/24/17 01:00 09/26/17 23:51 (Ativan Inj) 1 mg Q4H PRN IV PUSH 09/24/17 01:00 (Ativan) 2 mg Q2H PRN PO 09/24/17 01:00 (Ativan Inj) 2 mg Q2H PRN IV PUSH 09/24/17 01:00 09/24/17 09:47 (Ativan Inj) 2 mg Q1H PRN IV PUSH 09/24/17 01:00 (Ativan Inj) 2 mg Q15M PRN IV PUSH 09/24/17 01:00 (Haldol Inj) 2 mg Q15M PRN IM 09/24/17 01:00 Heparin Sodium/ Dextrose 250 ml @ 10 mls/hr TITRATE PRN IV 09/24/17 01:00 09/27/17 04:55 (Compazine) 5 mg Q6H PRN PO 09/24/17 07:45 09/24/17 08:13 Cefepime HCl 1000 mg/Sodium Chloride 100 ml @ 200 mls/hr Q8H IV 09/24/17 14:00 09/27/17 14:13 Azithromycin 500 mg/Sodium Chloride 250 ml @ 250 mls/hr Q24H IV 09/25/17 03:00 09/27/17 03:24 (Duoneb Neb) 1 ampule Q6HR WHILE AWAKE NEB NEB 09/24/17 14:00 09/27/17 14:00 (Duoneb Neb) 1 ampule Q2HR NEB PRN NEB 09/24/17 13:15 (Lopressor) 12.5 mg Q12HR PO 09/24/17 21:00 09/27/17 08:49 (Lipitor) 20 mg HS PO 09/24/17 21:00 09/26/17 20:31 (Norvasc) 5 mg DAILY PO 09/25/17 11:45 09/27/17 08:49 (Levemir Inj) 10 units Q12HR SQ 09/27/17 21:00 (D50w (Vial) Inj) 50 ml UNSCH PRN IV PUSH 09/27/17 17:30 (Glucagon Inj) 1 mg UNSCH PRN OTHER 09/27/17 17:30 (NovoLOG SUPPLEMENTAL SCALE) 1 ACHS SLIDING SCALE SQ 09/27/17 21:00 (SoluMEDROL INJ) 40 mg Q12HR IV PUSH 09/27/17 21:00 A/P Problem List: (1) Cavitary lesion of lung ICD Code: J98.4 - Other disorders of lung Status: Acute Plan: Broad-spectrum antibiotics, cefepime and azithromycin 09/26 M tuberculosis DNA PCR negative - Consult ID and Pulmonology. Continue Cefepime IV and IV Azithromycin. 09/27 appreciate pulmonology recommendations. Possible bronchoscopy depending on CT scan imaging to be reviewed by paper baler. (2) ACS (acute coronary syndrome) ICD Code: I24.9 - Acute ischemic heart disease, unspecified Status: Acute Plan: Patient recently had quite a bit of exertion and felt that his chest pain started after that. Cardiac enzymes appear to be trending down. Will follow with cardiology of systems Continue with morphine as needed, nitro, aspirin, beta-jennie 09/26 Continue heparin drip. Appreciate cardiology recommendations. Patient for stress test in am. EKG reviewed by me with Sinus rythm and inferior Q waves. No ST segment elevation or depression. 09/27 nuclear stress testing with decreased ejection fraction measuring 44%. Global hypokinesis. No focal perfusion defect or focal wall motion abnormal ity. Patient cleared by cardiology to be discharged. (3) Hyponatremia ICD Code: E87.1 - Hypo-osmolality and hyponatremia Status: Acute Plan: 09/26 Due to hypovolemic hyponatremia due to dehydration. Continue IV fluids. (4) COPD (chronic obstructive pulmonary disease) ICD Code: J44.9 - Chronic obstructive pulmonary disease, unspecified Status: Acute Plan: Diffuse BL expiratory wheezing on exam - patient requiring more oxygen - currenty on 3 liters. Start on IV solumedrol Supplemental o2 to keep o2 sat >92% 09/27 tapered dose of IV Solu-Medrol from 40 mg IV every 6 hours to 40 mg IV every 12 hours. Continue Symbicort. (5) Hypertensive urgency ICD Code: I16.0 - Hypertensive urgency Plan: With evidence of acute cardiac injury Continue with IV blood pressure medications, continue with date of jennie, aspirin and follow-up clinically 09/26 BP improving. Fu BP trends and adjust medications accordingly. Patient started on amlodipine. 09/27 blood pressure severely elevated with a systolic blood pressure in the 170s. Increase dose of amlodipine to 5 mg p.o. daily and start the patient on lisinopril 10 minutes p.o. daily. Start clonidine as needed. (6) Alcohol abuse ICD Code: F10.10 - Alcohol abuse, uncomplicated Status: Acute Plan: CIWA Folic acid Thiamine No evidence of alcohol withdrawal. (7) Smoking addiction ICD Code: F17.200 - Nicotine dependence, unspecified, uncomplicated Status: Acute Plan: Advised smoking cassation for more than 3 minutes. Assessment and Plan DVT prophylaxis: SCDs. Discharge Planning BP still elevated. Pending pulmonology clearance. Patient still on IV steroids. Problem Qualifiers (1) COPD (chronic obstructive pulmonary disease): Qualified Codes: J44.1 - Chronic obstructive pulmonary disease with (acute) exacerbation Varinder Kingsley MD Sep 27, 2017 17:32
[2017-09-27] MEDS ORDERED: cloNIDine HCL 0.1 MG TAB PO PRN (19:00)
[2017-09-27] MEDS: RAMIPRIL 5 MG CAP PO SCH (19:22)
[2017-09-27] MEDS: HYDROCHLOROTHIAZIDE 25 MG TAB PO SCH (19:23)
[2017-09-27] MEDS: LORazepam 1 MG TAB PO PRN (19:43)
--- NOTE | 2017-09-27 19:49 | HHI.PR ---
Subjective Remarks 67 YOWM with Lung infilt sob,CP Had stress test done No Cough or sp AFB neg Anxious to go home Objective Vital Signs Vital Signs Date Time Temp Pulse Resp B/P (MAP) Pulse Ox O2 Delivery O2 Flow Rate FiO2 09/27/17 19:11 93 21 09/27/17 18:00 78 09/27/17 17:00 70 09/27/17 16:00 80 09/27/17 15:30 97.7 91 18 173/80 (111) 95 09/27/17 15:00 90 09/27/17 14:00 74 09/27/17 13:00 80 09/27/17 11:45 97.5 67 20 165/85 (111) 95 09/27/17 09:00 86 09/27/17 08:00 62 09/27/17 07:45 97.4 62 18 166/65 (98) 97 09/27/17 07:24 94 Nasal Cannula 4.00 09/27/17 07:00 60 09/27/17 06:00 59 09/27/17 05:00 62 09/27/17 04:00 59 09/27/17 04:00 98.2 56 18 155/87 (109) 95 09/27/17 03:06 63 09/27/17 02:05 54 09/27/17 01:00 62 09/27/17 00:00 98.4 69 20 157/89 (111) 96 09/27/17 00:00 63 09/26/17 23:00 63 09/26/17 22:00 62 09/26/17 21:00 55 09/26/17 20:33 98.1 66 20 157/89 (111) 95 09/26/17 20:00 62 I/O 09/26/17 09/26/17 09/26/17 09/27/17 09/27/17 09/27/17 07:00 15:00 23:00 07:00 15:00 23:00 Intake Total 1240 ml 1250 ml 1360 ml 240 ml 1200 ml Output Total 600 ml 1050 ml 1025 ml 1300 ml Balance 640 ml 1250 ml 310 ml -785 ml -100 ml Intake Oral 240 ml 720 ml 240 ml 1200 ml IV Total 1000 ml 1250 ml 640 ml Output Urine Total 600 ml 1050 ml 1025 ml 1300 ml # Bowel Movements 0 1 Result Diagram: 09/27/17 0545 09/25/17 0610 Objective Remarks GENERAL: WBWN Wm,NAD SKIN: Warm and dry. HEAD: Normocephalic. EYES: No scleral icterus. No injection or drainage. NECK: Supple, trachea midline. No JVD or lymphadenopathy. CARDIOVASCULAR: Regular rate and rhythm without murmurs, gallops, or rubs. RESPIRATORY: Breath sounds equal bilaterally. No accessory muscle use. GASTROINTESTINAL: Abdomen soft, non-tender, nondistended. MUSCULOSKELETAL: No cyanosis, or edema. BACK: Nontender without obvious deformity. No CVA tenderness. A/P Assessment and Plan IMPRESSION: TAWANA Infilt vs scarring Chest Pain HTN COPD PLAN: Cont Abx Review previous CT Chest Aerosol nebs Wean off 02 Jose Ratliff MD Sep 27, 2017 19:49
[2017-09-27] MEDS ORDERED: NON-FORMULARY DRUG (Ipratropium-Albuterol Inh (Combivent Respimat Inh) 1 PUFF) INH SCH (21:00)
[2017-09-27] MEDS: ATORVASTATIN 20 MG TAB PO SCH (21:28)
[2017-09-27] MEDS: INSULIN DETEMIR 100 UNITS/ML VIAL SQ SCH (21:31)
[2017-09-27] MEDS: INSULIN ASPART SUPPLEMENTAL SCALE SQ SCH (21:31)
[2017-09-27 22:28] LABS: HEMOGLOBIN A1C 6.2 % (4.3-6.0)
[2017-09-28] VITALS (24 sets, daily range): BP systolic 147–171; BP diastolic 71–92; PULSE 52–85; RESP 18–22; TEMP 97.5–98.2; O2SAT 93–98
[2017-09-28] MEDS: AZITHROMYCIN INJ 500 MG in SODIUM CHLOR 0.9% 250 ML INJ 250 ML IV SCH (03:18)
[2017-09-28 05:25] LABS: AUTOMATED NEUTROPHIL # 10.9 TH/MM3 (1.8-7.7); BASOPHIL % 0.1 % (0.0-2.0); HEMATOCRIT 35.4 % (39.0-51.0); LYMPH % 8.6 % (9.0-44.0); LYMPHOCYTE # 1.1 TH/MM3 (1.0-4.8); MEAN CELL VOLUME 92.3 FL (80.0-100.0); MEAN CORPUSCULAR HEMOGLOBIN 31.4 PG (27.0-34.0); MEAN PLATELET VOLUME 6.9 FL (7.0-11.0); MONO % 5.6 % (0.0-8.0); MONOCYTE # 0.7 TH/MM3 (0-0.9); NEUT % 85.7 % (16.0-70.0); PLATELET COUNT 287 TH/MM3 (150-450); RED BLOOD COUNT 3.83 MIL/MM3 (4.50-5.90); RED CELL DISTRIBUTION WIDTH 15.7 % (11.6-17.2); WHITE BLOOD COUNT 12.8 TH/MM3 (4.0-11.0)
[2017-09-28 05:32] LABS: ALBUMIN 2.6 GM/DL (3.4-5.0); AST (GOT) 61 U/L (15-37); BICARBONATE 27.2 MEQ/L (21.0-32.0); BLOOD UREA NITROGEN 11 MG/DL (7-18); CALCIUM 8.3 MG/DL (8.5-10.1); CHLORIDE 100 MEQ/L (98-107); CREATININE 0.73 MG/DL (0.60-1.30); GLOMERULAR FILTRATION RATE 107 ML/MIN (>89); GLUCOSE,RANDOM 151 MG/DL (74-106); SODIUM (NA) 135 MEQ/L (136-145)
[2017-09-28 05:35] LABS: ALKALINE PHOSPHATASE 134 U/L (45-117); ALT (GPT) 63 U/L (12-78); TOTAL BILIRUBIN ADULT 0.4 MG/DL (0.2-1.0)
[2017-09-28] MEDS: CEFEPIME INJ 1,000 MG in SODIUM CHLORIDE 0.9% INJ 100 ML IV SCH ×3 (06:15→21:29)
[2017-09-28] MEDS: HYDROCHLOROTHIAZIDE 25 MG TAB PO SCH (07:49)
[2017-09-28] MEDS: FOLIC ACID 1 MG TAB PO SCH (07:49)
[2017-09-28] MEDS: THIAMINE HCL 100 MG TAB PO SCH (07:49)
[2017-09-28] MEDS: DOCUSATE SODIUM 50 MG/SENNA 8.6 MG TAB PO SCH ×2 (07:49→21:26)
[2017-09-28] MEDS: MULTIVITAMINS/MINERALS THERAPEUTIC TAB PO SCH (07:49)
[2017-09-28] MEDS: SODIUM CHLORIDE 0.9% FLUSH 10 ML FLUSH IV FLUSH SCH ×2 (07:50→21:27)
[2017-09-28] MEDS: ASPIRIN 81 MG CHEW TAB CHEW SCH (07:50)
[2017-09-28] MEDS: methylPREDNISolone SOD SUCC 40 MG/1 ML VIAL IV PUSH SCH (07:50)
[2017-09-28] MEDS: RAMIPRIL 5 MG CAP PO SCH (07:50)
[2017-09-28] MEDS: INSULIN ASPART SUPPLEMENTAL SCALE SQ SCH ×5 (07:51→21:00)
[2017-09-28] MEDS: BUDESONIDE-FORMOTEROL 160/4.5 MCG INHALER INH SCH ×2 (07:51→21:27)
[2017-09-28] MEDS: INSULIN DETEMIR 100 UNITS/ML VIAL SQ SCH ×2 (07:51→21:28)
[2017-09-28] MEDS: METOPROLOL TARTRATE 25 MG TAB PO SCH ×2 (07:52→21:27)
[2017-09-28] MEDS: RESP: ALBUTEROL 2.5 MG/IPRATROPIUM 0.5 MG NEB (SCH) NEB (08:00)
[2017-09-28] MEDS ORDERED: GLUCKIT15 (15:04)
[2017-09-28] MEDS ORDERED: AMLO10 PO (15:04)
[2017-09-28] MEDS ORDERED: LANCETS1 MI1 (15:04)
[2017-09-28] MEDS ORDERED: BIOM30MI (15:04)
[2017-09-28] MEDS ORDERED: AZIT500T2 PO (15:04)
[2017-09-28] MEDS ORDERED: NOVOLOGP2 SQ (15:04)
[2017-09-28] MEDS ORDERED: INSU1MIS15 (15:04)
[2017-09-28] MEDS ORDERED: PRED10PA PO (15:04)
[2017-09-28] MEDS ORDERED: GLUCTES12 (15:04)
[2017-09-28] MEDS ORDERED: DOXAZOSIN MESYLATE 2 MG TAB PO ONE (15:15)
[2017-09-28] MEDS ORDERED: METOPROLOL TARTRATE 25 MG TAB PO ONE (15:15)
--- NOTE | 2017-09-28 15:19 | HHI.PR ---
Subjective Remarks patient still hypertensive Denies cp, sob improving Afebrile Objective Vitals Vital Signs Date Time Temp Pulse Resp B/P (MAP) Pulse Ox O2 Delivery O2 Flow Rate FiO2 09/28/17 14:47 82 20 171/91 (117) 93 09/28/17 13:13 161/84 (109) 09/28/17 12:16 60 09/28/17 12:00 72 09/28/17 11:40 97.5 70 22 164/85 (111) 94 09/28/17 11:00 62 09/28/17 10:00 58 09/28/17 09:00 60 09/28/17 08:00 97.9 65 18 159/71 (100) 93 09/28/17 08:00 56 09/28/17 07:00 54 09/28/17 04:00 98.0 70 18 151/92 (111) 95 09/28/17 00:12 63 09/28/17 00:00 98.2 85 20 147/77 (100) 95 09/27/17 20:43 18 09/27/17 20:05 101 09/27/17 20:00 98.0 83 20 165/85 (111) 94 09/27/17 19:11 93 21 09/27/17 18:00 78 09/27/17 17:00 70 09/27/17 16:00 80 09/27/17 15:30 97.7 91 18 173/80 (111) 95 I/O 09/27/17 09/27/17 09/27/17 09/28/17 09/28/17 09/28/17 07:00 15:00 23:00 07:00 15:00 23:00 Intake Total 240 ml 1200 ml 240 ml Output Total 1025 ml 1300 ml 700 ml Balance -785 ml -100 ml -460 ml Intake Oral 240 ml 1200 ml 240 ml Output Urine Total 1025 ml 1300 ml 700 ml # Bowel Movements 1 Result Diagram: 09/28/17 0456 09/28/17 0456 Imaging Last 72 hours Impressions Myocardial Perfusion Scan Nuc Med 09/27/17 0000 Signed Impressions: Service Date/Time: Wednesday, September 27, 2017 10:25 - CONCLUSION: Decreased ejection fraction measuring 44%%. Global hypokinesis. No focal perfusion defect or focal wall motion abnormality. RISK CATEGORY: 2- Intermediate Risk. Hardik R Ponce, MD Objective Remarks AAox3 Mild scattered wheezing with better aeration. No rhonchi auscultated. S1S2 RRR, no MRG no edema or JVD Medications and IVs Current Medications Medications (Trade) Dose Ordered Sig/Trey Route Start Time Stop Time Status Last Admin (Symbicort 160-4.5 Mcg Inh) 2 puff Q12HR INH 09/24/17 09:00 09/28/17 07:51 (NS Flush) 2 ml UNSCH PRN IV FLUSH 09/24/17 01:00 (NS Flush) 2 ml BID IV FLUSH 09/24/17 09:00 09/28/17 07:50 (Zofran Inj) 4 mg Q6H PRN IVP 09/24/17 01:00 09/24/17 02:30 (Tylenol) 650 mg Q6H PRN PO 09/24/17 01:00 09/25/17 21:40 ([place] 5-325 Mg) 1 tab Q4H PRN PO 09/24/17 01:00 09/27/17 19:43 (Morphine Inj) 2 mg Q3H PRN IV PUSH 09/24/17 01:00 (Trina-Colace) 1 tab BID PO 09/24/17 09:00 09/28/17 07:49 (Milk Of Magnesia Liq) 30 ml Q12H PRN PO 09/24/17 01:00 (Senokot) 17.2 mg Q12H PRN PO 09/24/17 01:00 (Dulcolax Supp) 10 mg DAILY PRN RECTAL 09/24/17 01:00 (Lactulose Liq) 30 ml DAILY PRN PO 09/24/17 01:00 (Aspirin Chew) 81 mg DAILY CHEW 09/24/17 09:00 09/28/17 07:50 (Folate) 1 mg DAILY PO 09/24/17 09:00 09/29/17 08:59 09/28/17 07:49 (Vitamin B1) 100 mg DAILY PO 09/24/17 09:00 09/28/17 07:49 (Theragran M Tab) 1 tab DAILY PO 09/24/17 09:00 09/29/17 08:59 09/28/17 07:49 (Romazicon Inj) 0.2 mg Q1M PRN IV PUSH 09/24/17 01:00 (Ativan) 1 mg Q4H PRN PO 09/24/17 01:00 09/27/17 19:43 (Ativan Inj) 1 mg Q4H PRN IV PUSH 09/24/17 01:00 (Ativan) 2 mg Q2H PRN PO 09/24/17 01:00 09/28/17 00:46 (Ativan Inj) 2 mg Q2H PRN IV PUSH 09/24/17 01:00 09/24/17 09:47 (Ativan Inj) 2 mg Q1H PRN IV PUSH 09/24/17 01:00 (Ativan Inj) 2 mg Q15M PRN IV PUSH 09/24/17 01:00 (Haldol Inj) 2 mg Q15M PRN IM 09/24/17 01:00 Heparin Sodium/ Dextrose 250 ml @ 10 mls/hr TITRATE PRN IV 09/24/17 01:00 09/27/17 23:28 (Compazine) 5 mg Q6H PRN PO 09/24/17 07:45 09/24/17 08:13 Cefepime HCl 1000 mg/Sodium Chloride 100 ml @ 200 mls/hr Q8H IV 09/24/17 14:00 09/28/17 13:00 Azithromycin 500 mg/Sodium Chloride 250 ml @ 250 mls/hr Q24H IV 09/25/17 03:00 09/28/17 03:18 (Duoneb Neb) 1 ampule Q2HR NEB PRN NEB 09/24/17 13:15 (Lipitor) 20 mg HS PO 09/24/17 21:00 09/27/17 21:28 (Levemir Inj) 10 units Q12HR SQ 09/27/17 21:00 09/28/17 07:51 (D50w (Vial) Inj) 50 ml UNSCH PRN IV PUSH 09/27/17 17:30 (Glucagon Inj) 1 mg UNSCH PRN OTHER 09/27/17 17:30 (NovoLOG SUPPLEMENTAL SCALE) 1 ACHS SLIDING SCALE SQ 09/27/17 21:00 09/28/17 07:51 (Norvasc) 10 mg DAILY PO 09/28/17 09:00 09/28/17 07:49 (Hydrodiuril) 25 mg DAILY PO 09/27/17 19:00 09/28/17 07:49 (Altace) 10 mg DAILY PO 09/27/17 19:00 09/28/17 07:50 (Catapres) 0.1 mg Q6H PRN PO 09/27/17 19:00 09/28/17 13:36 (Lopressor) 25 mg Q12HR PO 09/28/17 21:00 (Cardura) 2 mg DAILY PO 09/29/17 09:00 (Deltasone) 20 mg BID PO 09/28/17 21:00 (Glucophage) 500 mg BIDPC PO 09/28/17 18:00 A/P Problem List: (1) Cavitary lesion of lung ICD Code: J98.4 - Other disorders of lung Status: Acute (2) ACS (acute coronary syndrome) ICD Code: I24.9 - Acute ischemic heart disease, unspecified Status: Acute (3) Hyponatremia ICD Code: E87.1 - Hypo-osmolality and hyponatremia Status: Acute (4) COPD (chronic obstructive pulmonary disease) ICD Code: J44.9 - Chronic obstructive pulmonary disease, unspecified Status: Acute (5) Hypertensive urgency ICD Code: I16.0 - Hypertensive urgency (6) Alcohol abuse ICD Code: F10.10 - Alcohol abuse, uncomplicated Status: Acute (7) Smoking addiction ICD Code: F17.200 - Nicotine dependence, unspecified, uncomplicated Status: Acute (8) Prediabetes ICD Code: R73.03 - Prediabetes Status: Acute Plan: Blood sugar severely elevated, now better controlled after adding insulin Levemir and SSI with insulin NovoLog. Continue to monitor Accu-Cheks. Hemoglobin A1c 6.2. The patient explained he is prediabetic. We will consult dietitian and peer educator since the patient will need to go home on SSI with insulin NovoLog, so he will need some teaching on how to monitor his Accu-Cheks and cover with insulin as per protocol. Discussed with the patient, will start on metformin 500 mg p.o. twice daily . Assessment and Plan (1) Cavitary lesion of lung Plan: Broad-spectrum antibiotics, cefepime and azithromycin 09/26 M tuberculosis DNA PCR negative - Consult ID and Pulmonology. Continue Cefepime IV and IV Azithromycin. 09/27 appreciate pulmonology recommendations. Possible bronchoscopy depending on CT scan imaging to be reviewed by turn down worker. 09/28 Discussed the case with Dr. Ratliff who recommended bronchoscopy as an outpatient. He reviewed the CT scan and as per his report the patient did have a cavitary lesion, however it is unknown if this is an acute or chronic finding. Will discharge home on oral cefuroxime and azithromycin. (2) ACS (acute coronary syndrome) Plan: Patient recently had quite a bit of exertion and felt that his chest pain started after that. Cardiac enzymes appear to be trending down. Will follow with cardiology of systems Continue with morphine as needed, nitro, aspirin, beta-jennie 09/26 Continue heparin drip. Appreciate cardiology recommendations. Patient for stress test in am. EKG reviewed by me with Sinus rythm and inferior Q waves. No ST segment elevation or depression. 09/27 nuclear stress testing with decreased ejection fraction measuring 44%. Global hypokinesis. No focal perfusion defect or focal wall motion abnormal ity. Patient cleared by cardiology to be discharged. (3) Hyponatremia Plan: 09/26 Due to hypovolemic hyponatremia due to dehydration. 09/28 resolved after ns administration. (4) COPD (chronic obstructive pulmonary disease) ICD Code: J44.9 - Chronic obstructive pulmonary disease, unspecified Status: Acute Plan: Diffuse BL expiratory wheezing on exam - patient requiring more oxygen - currenty on 3 liters. Start on IV solumedrol Supplemental o2 to keep o2 sat >92% 09/27 tapered dose of IV Solu-Medrol from 40 mg IV every 6 hours to 40 mg IV every 12 hours. Continue Symbicort. 09/28 DC IV Solu-Medrol and start oral prednisone taper. (5) Hypertensive urgency ICD Code: I16.0 - Hypertensive urgency Plan: With evidence of acute cardiac injury Continue with IV blood pressure medications, continue with date of jennie, aspirin and follow-up clinically 09/26 BP improving. Fu BP trends and adjust medications accordingly. Patient started on amlodipine. 09/27 blood pressure severely elevated with a systolic blood pressure in the 170s. Increase dose of amlodipine to 5 mg p.o. daily and start the patient on lisinopril 10 minutes p.o. daily. Start clonidine as needed. 09/28 blood pressure still severely elevated. Increase dose of metoprolol to 25 mg p.o. twice daily, Add cardura 2 mg po daily, continue amlodipine 10 mg p.o. daily. (6) Alcohol abuse Plan: CIWA Folic acid Thiamine No evidence of alcohol withdrawal. (7) Smoking addiction Plan: Advised smoking cassation for more than 3 minutes. Assessment and Plan DVT prophylaxis: SCDs. DVT prophylaxis: SCDs. Discharge Planning Possible DC in a.m. if blood pressure well controlled after diabetes and diet education. Problem Qualifiers (1) COPD (chronic obstructive pulmonary disease): Qualified Codes: J44.1 - Chronic obstructive pulmonary disease with (acute) exacerbation Varinder Kingsley MD Sep 28, 2017 15:18
--- NOTE | 2017-09-28 15:20 | HHI.PR ---
Subjective Remarks 67 YOWM with Lung infilt sob,CP Had stress test done No Cough or sp AFB neg Anxious to go home BC Neg AFB Neg CT chest showed TAWANA cavitary lesion with scarring Objective Vital Signs Vital Signs Date Time Temp Pulse Resp B/P (MAP) Pulse Ox O2 Delivery O2 Flow Rate FiO2 09/28/17 14:47 82 20 171/91 (117) 93 09/28/17 13:13 161/84 (109) 09/28/17 12:16 60 09/28/17 12:00 72 09/28/17 11:40 97.5 70 22 164/85 (111) 94 09/28/17 11:00 62 09/28/17 10:00 58 09/28/17 09:00 60 09/28/17 08:00 97.9 65 18 159/71 (100) 93 09/28/17 08:00 56 09/28/17 07:00 54 09/28/17 04:00 98.0 70 18 151/92 (111) 95 09/28/17 00:12 63 09/28/17 00:00 98.2 85 20 147/77 (100) 95 09/27/17 20:43 18 09/27/17 20:05 101 09/27/17 20:00 98.0 83 20 165/85 (111) 94 09/27/17 19:11 93 21 09/27/17 18:00 78 09/27/17 17:00 70 09/27/17 16:00 80 09/27/17 15:30 97.7 91 18 173/80 (111) 95 I/O 09/27/17 09/27/17 09/27/17 09/28/17 09/28/17 09/28/17 07:00 15:00 23:00 07:00 15:00 23:00 Intake Total 240 ml 1200 ml 240 ml Output Total 1025 ml 1300 ml 700 ml Balance -785 ml -100 ml -460 ml Intake Oral 240 ml 1200 ml 240 ml Output Urine Total 1025 ml 1300 ml 700 ml # Bowel Movements 1 Result Diagram: 09/28/17 0456 09/28/17 0456 Objective Remarks GENERAL: WBWN Wm,NAD SKIN: Warm and dry. HEAD: Normocephalic. EYES: No scleral icterus. No injection or drainage. NECK: Supple, trachea midline. No JVD or lymphadenopathy. CARDIOVASCULAR: Regular rate and rhythm without murmurs, gallops, or rubs. RESPIRATORY: Breath sounds equal bilaterally. No accessory muscle use. GASTROINTESTINAL: Abdomen soft, non-tender, nondistended. MUSCULOSKELETAL: No cyanosis, or edema. BACK: Nontender without obvious deformity. No CVA tenderness. A/P Assessment and Plan IMPRESSION: TAWANA Infilt vs scarring Chest Pain HTN COPD PLAN: Cont Abx Aerosol nebs DW Pt and his need for Bronch He wants to go home and think about it Wants to have it done as out PT DC plans for home Will FU in office 10/11/2017 at 3;15PM Jose Ratliff MD Sep 28, 2017 15:20
[2017-09-28] MEDS: metFORMIN HCL 500 MG TAB PO SCH (16:07)
[2017-09-28] MEDS: LORazepam 1 MG TAB PO PRN (16:33)
[2017-09-28] MEDS: predniSONE 20 MG TAB PO SCH (21:26)
[2017-09-28] MEDS: ATORVASTATIN 20 MG TAB PO SCH (21:26)
[2017-09-29] VITALS (15 sets, daily range): BP systolic 147–159; BP diastolic 75–82; PULSE 52–116; RESP 16–22; TEMP 97.5–98.6; O2SAT 92–97
[2017-09-29] MEDS: AZITHROMYCIN INJ 500 MG in SODIUM CHLOR 0.9% 250 ML INJ 250 ML IV SCH (02:32)
[2017-09-29] MEDS: CEFEPIME INJ 1,000 MG in SODIUM CHLORIDE 0.9% INJ 100 ML IV SCH (05:33)
[2017-09-29] MEDS: INSULIN ASPART SUPPLEMENTAL SCALE SQ SCH ×2 (08:00→12:30)
[2017-09-29] MEDS ORDERED: DOXAZOSIN MESYLATE 2 MG TAB PO SCH (09:00)
[2017-09-29] MEDS: INSULIN DETEMIR 100 UNITS/ML VIAL SQ SCH (10:56)
[2017-09-29] MEDS: predniSONE 20 MG TAB PO SCH (10:56)
[2017-09-29] MEDS: THIAMINE HCL 100 MG TAB PO SCH (10:57)
[2017-09-29] MEDS: RAMIPRIL 5 MG CAP PO SCH (10:57)
[2017-09-29] MEDS: METOPROLOL TARTRATE 25 MG TAB PO SCH (10:57)
[2017-09-29] MEDS: metFORMIN HCL 500 MG TAB PO SCH (10:57)
[2017-09-29] MEDS: HYDROCHLOROTHIAZIDE 25 MG TAB PO SCH (10:58)
[2017-09-29] MEDS: DOCUSATE SODIUM 50 MG/SENNA 8.6 MG TAB PO SCH (10:58)
[2017-09-29] MEDS: ASPIRIN 81 MG CHEW TAB CHEW SCH (10:58)
[2017-09-29] MEDS: SODIUM CHLORIDE 0.9% FLUSH 10 ML FLUSH IV FLUSH SCH (11:00)
[2017-09-29] MEDS: BUDESONIDE-FORMOTEROL 160/4.5 MCG INHALER INH SCH (11:00)
[2017-09-29] MEDS ORDERED: METF500 PO (14:03)
--- NOTE | 2017-09-29 14:04 | HHI.DCPOC ---
Discharge Care Plan Diagnosis: (1) COPD (chronic obstructive pulmonary disease) (2) Hyponatremia (3) ACS (acute coronary syndrome) (4) Cavitary lesion of lung (5) Hypertensive urgency (6) Prediabetes (7) Alcohol abuse (8) Smoking addiction Goals to Promote Your Health * To prevent worsening of your condition and complications * To maintain your health at the optimal level Directions to Meet Your Goals Take your medications as prescribed Follow your dietary instruction Follow activity as directed Keep your appointments as scheduled Take your immunizations and boosters as scheduled If your symptoms worsen call your PCP, if no PCP go to Urgent Care Center or Emergency Room Smoking is Dangerous to Your Health. Avoid second hand smoke Call the 24-hour hour crisis hotline for domestic abuse at Varinder Kingsley MD Sep 29, 2017 14:04
--- NOTE | 2017-09-29 14:18 | HHI.DS ---
Discharge Summary Admission Date Sep 24, 2017 at 01:03 Discharge Date: Sep 29, 2017 Admitting Diagnosis acs; cavitary lung lesion; hyponatremia (1) Cavitary lesion of lung ICD Code: J98.4 - Other disorders of lung Status: Acute (2) ACS (acute coronary syndrome) ICD Code: I24.9 - Acute ischemic heart disease, unspecified Status: Acute (3) Hyponatremia ICD Code: E87.1 - Hypo-osmolality and hyponatremia Status: Acute (4) COPD (chronic obstructive pulmonary disease) ICD Code: J44.9 - Chronic obstructive pulmonary disease, unspecified Status: Acute (5) Hypertensive urgency ICD Code: I16.0 - Hypertensive urgency (6) Alcohol abuse ICD Code: F10.10 - Alcohol abuse, uncomplicated Status: Acute (7) Smoking addiction ICD Code: F17.200 - Nicotine dependence, unspecified, uncomplicated Status: Acute (8) Prediabetes ICD Code: R73.03 - Prediabetes Status: Acute Brief History - From Admission This patient is a 67-year-old gentleman who has a history of hypertension and COPD. Patient does come to the hospital with about a week of increased cough, shortness of breath and generalized malaise. 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 This was followed by bronchitis symptoms which she has had before similar to COPD exacerbations. He had some green and bloody sputum with associated nausea and vomiting. This got worse over the last 2 days. In the meantime he saw his primary care provider who ordered an outpatient chest x-ray and a CT scan. CT scan was done yesterday and the patient began getting worse and came to the emergency room prior to the results. The results of the outpatient CT per ER attending show cavitary lesion concerning for tuberculosis. Patient is a former [place] man and has been out of the [place]. This was quite some years ago however. 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 He has not had any coleman fevers or chills. Patient has had progressive nausea and vomiting however he does have multiple cardiac risk factors including family history as well as a tobacco history and a personal history of hypertension and dyslipidemia. His cardiac enzymes were abnormal. The patient does prevent with acute coronary syndrome/non-ST elevation GA as his EKG does not show any segment changes consistent with ischemic events. His blood pressure also was quite elevated on arrival 200s over 100. Patient's been admitted to the hospital for further evaluation and treatment CBC/BMP: 09/28/17 0456 09/28/17 0456 Significant Findings Laboratory Tests Test 09/27/17 05:45 09/28/17 04:56 09/29/17 05:22 Red Blood Count 3.86 MIL/MM3 (4.50-5.90) 3.83 MIL/MM3 (4.50-5.90) Hemoglobin 12.2 GM/DL (13.0-17.0) 12.0 GM/DL (13.0-17.0) Hematocrit 35.6 % (39.0-51.0) 35.4 % (39.0-51.0) Mean Platelet Volume 6.8 FL (7.0-11.0) 6.9 FL (7.0-11.0) Activated Partial Thromboplast Time 47.4 SEC (24.3-30.1) 44.1 SEC (24.3-30.1) Hemoglobin A1c 6.2 % (4.3-6.0) White Blood Count 12.8 TH/MM3 (4.0-11.0) Neutrophils (%) (Auto) 85.7 % (16.0-70.0) Lymphocytes (%) (Auto) 8.6 % (9.0-44.0) Neutrophils # (Auto) 10.9 TH/MM3 (1.8-7.7) Random Glucose 151 MG/DL (74-106) Total Protein 6.0 GM/DL (6.4-8.2) Albumin 2.6 GM/DL (3.4-5.0) Calcium Level 8.3 MG/DL (8.5-10.1) Alkaline Phosphatase 134 U/L (45-117) Aspartate Amino Transf (AST/SGOT) 61 U/L (15-37) Sodium Level 135 MEQ/L (136-145) PE at Discharge AAox3 Mild scattered wheezing with better aeration. No rhonchi auscultated. S1S2 RRR, no MRG no edema or JVD Pt Condition on Discharge: Stable Discharge Disposition: Discharge Home Discharge Instructions DIET: Follow Instructions for: Diabetic Diet Activities you can perform: Regular-No Restrictions Varinder Kingsley MD Sep 29, 2017 14:18
== END 2017-09-29 15:30 | disposition home or self-care (01) | DRG 191 ==
LOC: PHED 22:49 → PHEDA 09-24 01:03 → PHEDH 09-24 05:07 → HCIS 09-24 17:38
PROVIDERS: ADMIT Hospitalist; ATTEND Hospitalist
DX: J44.1 Chronic obstructive pulmonary disease with (acute) exacerbation (principal); I24.9 Acute ischemic heart disease, unspecified; E87.1 Hypo-osmolality and hyponatremia; I10 Essential (primary) hypertension; J98.4 Other disorders of lung; Z90.5 Acquired absence of kidney; F17.210 Nicotine dependence, cigarettes, uncomplicated; E78.00 Pure hypercholesterolemia, unspecified; I16.0 Hypertensive urgency; E86.0 Dehydration; F10.10 Alcohol abuse, uncomplicated; R73.03 Prediabetes; R60.0 Localized edema; Z82.49 Family history of ischemic heart disease and other diseases of the circulatory system
CPT/HCPCS: 71045; 78452; 80048; 80053; 80307; 81001; 82550; 82552; 82948; 83036; 83605; 83735; 83880; 84484; 85025; 85027; 85610; 85730; 87015; 87040; 87116; 87206; 87556; 87798; 93005; 93017; 94640; 94664; 99291; A9502; J0456; J0692; J1644; J1815; J2060; J2405; J2543; J2785; J2920; J2930; J7030; J7050; J7512; Q0164